=== PATIENT | female | born 1985 | race Caucasian/White ===

== ENCOUNTER 2016-09-27 22:02 | Inpatient (IN) | payer SELFPAY ==
[~2016-09-27] VITALS: Ht 162.6 cm; Wt 71.6 kg
[2016-09-27 00:21] VITALS: O2SAT 98
[~2016-09-27 22:02] MED LIST: CIPR-9 PO
[2016-09-27 22:09] VITALS: BP 112/67; PULSE 107; RESP 36; TEMP 98.3; O2SAT 91
[2016-09-27] MEDS ORDERED: LORazepam 2 MG/ML VIAL ONE (22:13)
[2016-09-27] MEDS ORDERED: LORazepam 2 MG/ML VIAL IV PUSH ONE ×2 (22:15→22:45)
[2016-09-27] MEDS ORDERED: SODIUM CHLOR 0.9% 1000 ML INJ 1,000 ML IV SCH (22:15)
[2016-09-27 22:21] VITALS: O2SAT 91
--- NOTE | 2016-09-27 22:29 | PD ---
HPI Chief Complaint: Altered Mental Status Time Seen by Provider: 22:13 Travel History International Travel<30 days: No Contact w/Intl Traveler<30days: No Traveled to known affect area: No History of Present Illness HPI 31-year-old female was brought in by EMS for altered mental status. Family member reportedly called EMS this evening because patient was combative at home. Patient was given Ativan 2 mg IV. Patient became more lethargic on the way to the ED. Patient was given Narcan IV by EMS. Patient became combative subsequently. Patient has history of methamphetamine abuse. Patient's unable to give any more information today. PFSH Past Medical History Asthma: Yes Anxiety: Yes Depression: Yes Cancer: Yes (CERVICAL CA) Cardiovascular Problems: Yes Diminished Hearing: No Hepatitis: Yes ( C) Immunizations Current: No Menopausal: No : 4 Para: 3 Miscarriage: 1 : 0 Tubal Ligation: Yes Past Surgical History Cardiac Surgery: Yes (OPEN HEART FOR ENDOCARDITIS X 2) Section: Yes (X3) Valve Replacement: Yes (2015) Social History Alcohol Use: No Tobacco Use: Yes (08/14 ppd) Substance Use: Yes (DILAUDID, METH, MARIJUANA) Allergies-Medications (Allergen,Severity, Reaction): Coded Allergies: Codeine (Verified Allergy, Severe, 09/27/16) patient denies Iodine (Verified Allergy, Severe, hives, 09/27/16) Penicillin (Verified Allergy, Severe, hives, 09/27/16) "throat swollen" Reported Meds & Prescriptions Reported Meds & Active Scripts Active No Active Prescriptions or Reported Medications Review of Systems ROS Limitations: Altered Mental Status General / Constitutional: No: Fever Eyes: No: Visual changes HENT: No: Headaches Cardiovascular: No: Chest Pain or Discomfort Respiratory: No: Shortness of Breath Gastrointestinal: No: Abdominal Pain Genitourinary: No: Dysuria Musculoskeletal: No: Pain Skin: No Rash Neurologic: No: Weakness Psychiatric: No: Depression Endocrine: No: Polydipsia Hematologic/Lymphatic: No: Easy Bruising Physical Exam Narrative GENERAL: Well-nourished, well-developed patient. SKIN: Focused skin assessment warm/dry. HEAD: Normocephalic. EYES: No scleral icterus. No injection or drainage. Pupils 3 mm equal reactive. NECK: Supple, trachea midline. No JVD or lymphadenopathy. CARDIOVASCULAR: Regular rate and rhythm without murmurs, gallops, or rubs. RESPIRATORY: Breath sounds equal bilaterally. No accessory muscle use. GASTROINTESTINAL: Abdomen soft, non-tender, nondistended. MUSCULOSKELETAL: No cyanosis, or edema. BACK: Nontender without obvious deformity. No CVA tenderness. Neurologic exam: Patient is combative. Patient moves all extremity well. No obvious focal neurological deficit. Data Data Last Documented VS Vital Signs Date Time Temp Pulse Resp B/P Pulse Ox O2 Delivery O2 Flow Rate FiO2 09/27/16 23:36 102 32 101/55 98 Nasal Cannula 09/27/16 23:12 3 09/27/16 22:09 98.3 Orders Lorazepam Inj (Ativan Inj) (09/27/16 22:13) Lorazepam Inj (Ativan Inj) (09/27/16 22:15) Electrocardiogram (09/27/16 22:15) Complete Blood Count With Diff (09/27/16 22:15) Comprehensive Metabolic Panel (09/27/16 22:15) Creatine Kinase (Cpk) (09/27/16 22:15) Troponin I (09/27/16 22:15) Prothrombin Time / Inr (Pt) (09/27/16 22:15) Act Partial Throm Time (Ptt) (09/27/16 22:15) Urinalysis - C+S If Indicated (09/27/16 22:15) Thyroid Stimulating Hormone (09/27/16 22:15) Chest, Single Ap (09/27/16 22:15) Iv Access Insert/Monitor (09/27/16 22:15) Ecg Monitoring (09/27/16 22:15) Oximetry (09/27/16 22:15) Drug Screen, Random Urine (09/27/16 22:15) Alcohol (Ethanol) (09/27/16 22:15) Salicylates (Aspirin) (09/27/16 22:15) Tylenol (Acetaminophen) (09/27/16 22:15) Sodium Chlor 0.9% 1000 Ml Inj (Ns 1000 M (09/27/16 22:15) Lactic Acid (09/27/16 22:23) Arterial Blood Gas (Abg) (09/27/16 22:23) Blood Culture (09/27/16 22:23) Urinary Catheter Insert/Apply (09/27/16 22:23) Sodium Chlor 0.9% 1000 Ml Inj (Ns 1000 M (09/27/16 22:30) Lorazepam Inj (Ativan Inj) (09/27/16 22:45) Sodium Bicarbonate 8.4% Inj (Sodium Bica (09/27/16 23:00) Sodium Bicarbonate 8.4% Inj (Sodium Bica (09/27/16 22:51) Sodium Chlor 0.9% 1000 Ml Inj (Ns 1000 M (09/27/16 23:00) Vancomycin Inj (Vancomycin Inj) (09/27/16 23:00) Levofloxacin 750 Mg Premix Inj (Levaquin (09/27/16 23:00) Urine Culture (09/27/16 22:25) Type And Screen (09/27/16 23:26) Platelet Pheresis (09/27/16 23:26) Blood Product Administration .UPON TRANSFUSION (09/27/16 23:26) Sodium Chlor 0.9% 250 Ml Inj (Ns 250 Ml (09/27/16 23:30) Aztreonam Inj (Azactam Inj) (09/27/16 23:45) Ct Brain W/O Iv Contrast(Rout) (09/27/16 23:57) Ct Abd/Pel W/O Iv Contrast (09/27/16 23:57) Admit Order (Ed Use Only) (09/28/16 00:04) Labs Laboratory Tests Test 09/27/16 09/27/16 09/27/16 09/27/16 22:25 22:30 22:35 22:39 Urine Opiates Screen POS Urine Barbiturates Screen NEG Urine Amphetamines Screen POS Urine Benzodiazepines Screen NEG Urine Cocaine Screen NEG Urine Cannabinoids Screen NEG Urine Color DARK-BROWN Urine Turbidity CLOUDY Urine pH 5.0 Urine Specific [place] 1.024 Urine Protein 100 mg/dL Urine Glucose (UA) NEG mg/dL Urine Ketones NEG mg/dL Urine Occult Blood NEG Urine Nitrite NEG Urine Bilirubin NEG Urine Urobilinogen 8.0 MG/DL Urine Leukocyte Esterase SMALL Urine RBC 3 /hpf Urine WBC 10 /hpf Urine Squamous Epithelial 1 /hpf Cells Urine Amorphous Sediment RARE Urine Bacteria RARE /hpf Urine Hyaline Casts 32 /lpf Urine Mucus FEW /lpf Microscopic Urinalysis Comment CULTURE INDICATED Sodium Level 128 MEQ/L Potassium Level 4.0 MEQ/L Chloride Level 95 MEQ/L Carbon Dioxide Level 14.0 MEQ/L Anion Gap 19 MEQ/L Blood Urea Nitrogen 73 MG/DL Creatinine 3.95 MG/DL Estimat Glomerular Filtration 13 ML/MIN Rate Random Glucose 129 MG/DL Calcium Level 7.9 MG/DL Total Bilirubin 3.0 MG/DL Aspartate Amino Transf 50 U/L (AST/SGOT) Alanine Aminotransferase 22 U/L (ALT/SGPT) Alkaline Phosphatase 266 U/L Total Creatine Kinase 99 U/L Troponin I LESS THAN 0.02 NG/ML Total Protein 5.5 GM/DL Albumin 1.9 GM/DL Thyroid Stimulating Hormone 2.470 uIU/ML 3rd Gen Salicylates Level 2.9 MG/DL Acetaminophen Level 5.1 MCG/ML Ethyl Alcohol Level LESS THAN 3 MG/DL White Blood Count 12.7 TH/MM3 Red Blood Count 4.25 MIL/MM3 Hemoglobin 12.1 GM/DL Hematocrit 36.5 % Mean Corpuscular Volume 85.8 FL Mean Corpuscular Hemoglobin 28.6 PG Mean Corpuscular Hemoglobin 33.3 % Concent Red Cell Distribution Width 14.8 % Platelet Count 11 TH/MM3 Mean Platelet Volume 12.8 FL Neutrophils (%) (Auto) 80.0 % Lymphocytes (%) (Auto) 11.5 % Monocytes (%) (Auto) 5.9 % Eosinophils (%) (Auto) 2.4 % Basophils (%) (Auto) 0.2 % Neutrophils # (Auto) 10.1 TH/MM3 Lymphocytes # (Auto) 1.5 TH/MM3 Monocytes # (Auto) 0.7 TH/MM3 Eosinophils # (Auto) 0.3 TH/MM3 Basophils # (Auto) 0.0 TH/MM3 CBC Comment AUTO DIFF Differential Total Cells 100 Counted Neutrophils % (Manual) 60 % Band Neutrophils % 28 % Lymphocytes % 6 % Monocytes % 6 % Neutrophils # (Manual) 11.2 TH/MM3 Differential Comment FINAL DIFF MANUAL Toxic Granulation 1+ Toxic Vacuolation PRESENT Platelet Estimate RARE Platelet Morphology Comment NORMAL Acanthocytes OCC Prothrombin Time 14.5 SEC Prothromb Time International 1.3 RATIO Ratio Activated Partial 40.1 SEC Thromboplast Time Blood Gas Puncture Site RT FEMORAL Blood Gas Patient Temperature 98.6 Blood Gas HCO3 11 mmol/L Blood Gas Base Excess -13.9 mmol/L Blood Gas Oxygen Saturation 93 % Arterial Blood pH 7.36 Arterial Blood Partial 20 mmHg Pressure CO2 Arterial Blood Partial 75 mmHG Pressure O2 Arterial Blood Oxygen Content 15.1 Vol % Arterial Blood 1.4 % Carboxyhemoglobin Arterial Blood Methemoglobin 0.2 % Blood Gas Hemoglobin 11.5 G/DL Oxygen Delivery Device NASAL CANNULA Blood Gas Liter Flow 2 L/M Test 09/27/16 09/27/16 22:40 23:00 Lactic Acid Level 6.6 mmol/L Blood Type A NEGATIVE Antibody Screen NEGATIVE Blood Bank Comment MDM Medical Decision Making Medical Screen Exam Complete: Yes Emergency Medical Condition: Yes Interpretation(s) Last Impressions Chest X-Ray 09/27/16 Signed Impressions: Service Date/Time: Tuesday, September 27, 2016 22:32 - CONCLUSION: No acute cardiopulmonary disease demonstrated. Biju Richardson MD 23:51 PM. CBC WBC 12.7. Hemoglobin 12.1 hematocrit 36.5. Platelet 11. Sodium 128. Chloride 95. Bicarbonate 14. Anion gap 19. BUN 73. Creatinine 3.95. GFR 13. Glucose 129. Lactic acid 6.6. Calcium 7.9. Total bili 3.0. AST 50. Alkaline phosphatase 266. Cardiac enzymes are normal. INR 1.3. Urine drug screen positive opiates and amphetamine. Acetaminophen and salicylate normal. Alcohol negative. UA positive with WBC and bacteria. Differential Diagnosis Differential diagnosis including drug-induced mood disorder, TIA, CVA, electrolyte imbalance, dehydration, sepsis, AL. Narrative Course 31-year-old female with altered mental status. Sepsis protocol started. Normal saline solution 2 L IV bolus. Levaquin 750 minute gram IV. Vancomycin 1 g IV. Azactam 1 g IV. Sodium bicarbonate 2 A IV. Patient started to have respiratory distress. Patient was intubated. Patient's in DIC. Procedures Procedure Narrative CENTRAL VENOUS LINE: The site was prepped with Betadine and sterilely draped. It was infiltrated with 1% lidocaine plain. The deep vein was cannulated using normal Seldinger technique. A triple lumen central line was placed in the right femoral vein site and secured with simple interrupted suture. The site was sterilely dressed. The patient tolerated the procedure well. After the risks and benefits were discussed the following procedure was performed: INTUBATION: The patient was put in optimal position for the procedure. Rapid sequence intubation was initiated by me using 20 milligrams of etomidate IV and 50 milligrams of rocuronium IV. The patient was intubated with a 7.5 cuffed endotracheal tube. Tube placement was confirmed by visualization of the tube and balloon passing through the cords, capnometry and subsequent chest x-ray. Breath sounds were equal and well aerated bilaterally postintubation. No breath sounds over stomach. Patient tolerated procedure well. Diagnosis Primary Impression: Sepsis Qualified Code: A41.9 - Sepsis, due to unspecified organism Additional Impressions: Thrombocytopenia Coagulopathy Acute renal failure Qualified Code: N17.9 - Acute renal failure, unspecified acute renal failure type Admitting Information Admitting Physician Requests: Admit Scripts No Active Prescriptions or Reported Meds Kavon Sánchez MD Sep 27, 2016 22:29
[2016-09-27] MEDS ORDERED: SODIUM CHLOR 0.9% 1000 ML INJ 1,000 ML IV ONE ×2 (22:30→23:00)
[2016-09-27 22:38] VITALS: BP 98/57; PULSE 103; RESP 28; O2SAT 96
--- NOTE | 2016-09-27 22:40 | RADRPT ---
EXAM DATE/TIME: 09/27/2016 22:32 [facility] COMPARISON: No previous studies available for comparison. INDICATIONS : Short of breath. Possible overdose. MEDICAL HISTORY : None. SURGICAL HISTORY : Heart valve replacement x2. ENCOUNTER: Initial ACUITY: 1 day PAIN SCORE: Non-responsive. LOCATION: Bilateral chest FINDINGS: No infiltrate, effusion or pneumothorax demonstrated. Heart size stable, within normal limits. Patient has had previous median sternotomy and tricuspid yoni ve replacement. CONCLUSION: No acute cardiopulmonary disease demonstrated. Biju Richardson MD on September 27, 2016 at 22:37 Board Certified Radiologist. This report was verified electronically.
[2016-09-27 22:49] LABS: BLOOD GAS BASE EXCESS -13.9 mmol/L (-2-2); BLOOD GAS CARBOXYHEMOGLOBIN 1.4 % (0-4); BLOOD GAS HCO3 11 mmol/L (22-26); BLOOD GAS METHEMOGLOBIN 0.2 % (0-2); BLOOD GAS O2 HGB SATURATION 93 % (90-100); BLOOD GAS OXYGEN CONTENT 15.1 Vol % (12.0-20.0); BLOOD GAS PCO2 20 mmHg (38-42); BLOOD GAS PO2 75 mmHG (61-120); BLOOD GAS TOTAL HGB 11.5 G/DL (12.0-16.0); TEMP CORR TO 98.6
[2016-09-27 22:50] LABS: CRITICAL VALUE YES; DRAW SITE RT FEMORAL; LITER FLOW 2 L/M; NUMBER OF ARTERIAL PUNCTURES 1; OXYGEN DEVICE NASAL CANNULA; STAT YES
[2016-09-27] MEDS ORDERED: SODIUM BICARBONATE 8.4% INJ 50 MEQ/50 ML SYR ONE (22:51)
[2016-09-27 22:53] LABS: AUTOMATED NEUTROPHIL # 10.1 TH/MM3 (1.8-7.7); BASOPHIL % 0.2 % (0.0-2.0); EOSINOPHIL # 0.3 TH/MM3 (0-0.4); EOSINOPHIL % 2.4 % (0.0-4.0); HEMATOCRIT 36.5 % (35.0-46.0); LYMPH % 11.5 % (9.0-44.0); LYMPHOCYTE # 1.5 TH/MM3 (1.0-4.8); MEAN CELL VOLUME 85.8 FL (80.0-100.0); MEAN CORPUSCULAR HEMOGLOBIN 28.6 PG (27.0-34.0); MEAN CORPUSCULAR HGB CONC 33.3 % (32.0-36.0); MONO % 5.9 % (0.0-8.0); RED BLOOD COUNT 4.25 MIL/MM3 (4.00-5.30); RED CELL DISTRIBUTION WIDTH 14.8 % (11.6-17.2); WHITE BLOOD COUNT 12.7 TH/MM3 (4.0-11.0)
[2016-09-27 22:55] LABS: AMPHETAMINE, URINE POS (NEG); BACTERIA, URINE RARE /hpf; BARBITURATES, URINE NEG (NEG); BLOOD, URINE NEG (NEG); COCAINE, URINE NEG (NEG); GLUCOSE,URINE NEG (NEG); HYALINE CAST, URINE 32 /lpf (RARE); KETONE, URINE NEG (NEG); MUCUS URINE FEW /lpf (OCC); NITRITE,URINE NEG (NEG); SQUAMOUS EPITHELIAL CELL URINE 1 /hpf (0-5); URINE COLOR DARK-BROWN (YELLW/STRAW)
[2016-09-27 22:56] LABS: COMMENT (UR) CULTURE INDICATED; CULTURE IF INDICATED CULTURE INDICATED
[2016-09-27 22:58] LABS: HEMO FLAGS AUTO DIFF
[2016-09-27] MEDS ORDERED: SODIUM BICARBONATE 8.4% INJ 50 MEQ/50 ML SYR IV PUSH ONE (23:00)
[2016-09-27] MEDS ORDERED: LEVOFLOXACIN 750 MG PREMIX INJ 150 ML IV ONE (23:00)
[2016-09-27] MEDS ORDERED: VANCOMYCIN INJ 1,000 MG in SODIUM CHLOR 0.9% 250 ML INJ 250 ML IV ONE (23:00)
[2016-09-27 23:01] LABS: PLATELET COUNT 11 TH/MM3 (150-450)
[2016-09-27 23:11] LABS: ANION GAP 19 MEQ/L (5-15); AST (GOT) 50 U/L (15-37); BLOOD UREA NITROGEN 73 MG/DL (7-18); CHLORIDE 95 MEQ/L (98-107); GLOMERULAR FILTRATION RATE 13 ML/MIN (>89); SODIUM (NA) 128 MEQ/L (136-145)
[2016-09-27 23:12] VITALS: BP 95/61; PULSE 103; RESP 34; O2SAT 100
[2016-09-27 23:18] LABS: APTT (PATIENT) 40.1 SEC (24.3-30.1); INTERNATIONAL NORMALIZED RATIO 1.3 RATIO; PROTHROMBIN TIME - PATIENT 14.5 SEC (9.8-11.6)
[2016-09-27] MEDS ORDERED: SODIUM CHLOR 0.9% 250 ML INJ 250 ML IV ONE (23:30)
[2016-09-27 23:32] LABS: ACETAMINOPHEN 5.1 MCG/ML (10.0-30.0); ALKALINE PHOSPHATASE 266 U/L (45-117); ALT (GPT) 22 U/L (10-53)
[2016-09-27 23:35] LABS: CREATINE KINASE 99 U/L (26-192)
[2016-09-27 23:36] VITALS: BP 101/55; PULSE 102; RESP 32; O2SAT 98
[2016-09-27] MEDS ORDERED: AZTREONAM INJ 1,000 MG in SODIUM CHLORIDE 0.9% INJ 100 ML IV ONE (23:45)
[2016-09-28] VITALS (34 sets, daily range): BP systolic 89–149; BP diastolic 51–97; PULSE 102–140; RESP 14–32; TEMP 98.2–103; O2SAT 90–100
[2016-09-28] MEDS ORDERED: ETOMIDATE 20 MG/10 ML VIAL ONE (00:27)
[2016-09-28] MEDS ORDERED: fentaNYL DRIP 250 ML IV SCH ×2 (00:30→02:00)
[2016-09-28] MEDS ORDERED: MIDAZOLAM 100 MG/ML INJ 100 ML IV SCH ×2 (00:30→02:00)
[2016-09-28] MEDS ORDERED: ETOMIDATE 20 MG/10 ML VIAL IV PUSH ONE (00:30)
[2016-09-28] MEDS ORDERED: ROCURONIUM INJ 50 MG/5 ML VIAL IV ONE (00:30)
[2016-09-28] MEDS ORDERED: NOREPINEPHRINE 4 MG/4 ML AMP ONE ×2 (00:32→00:37)
[2016-09-28] MEDS ORDERED: fentaNYL DRIP 250 ML ONE (00:41)
[2016-09-28] MEDS ORDERED: TERBUTALINE INJ 1 MG/ML AMP SQ PRN ×4 (00:45→10:45)
[2016-09-28] MEDS ORDERED: NOREPINEPHRINE-DEXTROSE DRIP 250 ML IV SCH ×3 (00:45→01:45)
[2016-09-28 01:14] LABS: BANDS 28 % (0-6); NEUTROPHIL # MANUAL DIFF 11.2 TH/MM3 (1.8-7.7); PLATELET ESTIMATE SMEAR RARE (NORMAL); PLATELET MORPHOLOGY NORMAL (NORMAL); POLYS (SEG NEUTROPHILS) 60 % (16-70); SCAN/DIFF FINAL DIFF MANUAL; TOXIC GRANULATION 1+ (NORMAL); TOXIC VACUOLATION PRESENT (NONE SEEN); WBC DIFF SAMPLE 100
[2016-09-28 01:15] LABS: ACANTHOCYTES OCC (NORMAL)
[2016-09-28 01:39] LABS: BLOOD GAS BASE EXCESS -14.7 mmol/L (-2-2); BLOOD GAS CARBOXYHEMOGLOBIN 0.4 % (0-4); BLOOD GAS HCO3 13 mmol/L (22-26); BLOOD GAS METHEMOGLOBIN 0.5 % (0-2); BLOOD GAS O2 HGB SATURATION 98 % (90-100); BLOOD GAS OXYGEN CONTENT 17.5 Vol % (12.0-20.0); BLOOD GAS PCO2 39 mmHg (38-42); BLOOD GAS PO2 359 mmHG (61-120); TEMP CORR TO 98.6
[2016-09-28 01:40] LABS: CRITICAL VALUE YES; DRAW SITE RT BRACHIAL; FIO2 100 %; OXYGEN DEVICE VENTILATOR; VENT SETTINGS AC/14/400/PEEP5
[2016-09-28 01:41] LABS: NUMBER OF ARTERIAL PUNCTURES 2; STAT YES
--- NOTE | 2016-09-28 01:43 | RADRPT ---
EXAM DATE/TIME: 09/28/2016 01:18 [facility] COMPARISON: No previous studies available for comparison. INDICATIONS : Post intubation. MEDICAL HISTORY : None. SURGICAL HISTORY : Heart valve replacement x2. ENCOUNTER: Subsequent ACUITY: 1 day PAIN SCORE: Non-responsive. LOCATION: Bilateral chest FINDINGS: A single view of the chest demonstrates the endotracheal tube, nasogastric tube are both in good posi tion. Lungs are grossly clear. There are sternal wires and prosthetic valve unchanged. The cardiomed iastinal contours are unremarkable. Osseous structures are intact. CONCLUSION: Endotracheal tube and nasogastric are in good position Erick Wright MD on September 28, 2016 at 1:40 Board Certified Radiologist. This report was verified electronically.
[2016-09-28] MEDS ORDERED: Vancomycin Consult Pharmacy 1 EA OTHER SCH (01:45)
[2016-09-28] MEDS ORDERED: SODIUM CHLORIDE 0.9% FLUSH 10 ML FLUSH IV FLUSH PRN (01:45)
[2016-09-28] MEDS ORDERED: SODIUM CHLOR 0.9% 1000 ML INJ 1,000 ML IV SCH (01:45)
[2016-09-28] MEDS ORDERED: CHLORHEXIDINE GLUCONATE 2 % 1 PACK (2 CLOTHS) TOP PRN ×2 (01:45→02:00)
[2016-09-28] MEDS ORDERED: RESP: ALBUTEROL 2.5 MG/IPRATROPIUM 0.5 MG NEB (PRN) INH (01:45)
[2016-09-28] MEDS ORDERED: MISCELLANEOUS NURSING INFORMATION XX SCH ×2 (01:45→02:00)
[2016-09-28] MEDS ORDERED: SODIUM BICARBONATE 8.4% INJ 50 MEQ/50 ML SYR ONE (01:59)
[2016-09-28] MEDS ORDERED: MORPHINE SULFATE 4 MG/ML INJ IV PRN (02:00)
[2016-09-28] MEDS ORDERED: MIDAZOLAM HCL 2 MG/2 ML VIAL IV PRN (02:00)
[2016-09-28] MEDS ORDERED: SODIUM CHLORIDE 0.9% FLUSH 10 ML FLUSH IVF PRN (02:00)
[2016-09-28] MEDS ORDERED: VANCOMYCIN INJ 1,000 MG in SODIUM CHLOR 0.9% 250 ML INJ 250 ML IV ONE (02:00)
[2016-09-28] MEDS ORDERED: SODIUM BICARBONATE 8.4% INJ 50 MEQ/50 ML SYR IV PUSH ONE (02:00)
[2016-09-28] MEDS ORDERED: SODIUM BICARBONATE 8.4% INJ 150 MEQ in DEXTROSE 5% IN WATE 1000ML INJ 1,000 ML IV SCH ×2 (02:00)
[2016-09-28] MEDS: metroNIDAZOLE 500 MG INJ 100 ML IV SCH ×3 (02:09→17:01)
--- NOTE | 2016-09-28 02:39 | RADRPT ---
EXAM DATE/TIME: 09/28/2016 02:26 [facility] COMPARISON: No previous studies available for comparison. INDICATIONS : Altered mental status. RADIATION DOSE: 41.10 CTDIvol (mGy) MEDICAL HISTORY : Open heart surgery for endocarditis. Valve replacement. Substance abuse. SURGICAL HISTORY : Tubal ligation. section. ENCOUNTER: Initial ACUITY: 1 day PAIN SCALE: Non-responsive LOCATION: cranial TECHNIQUE: Multiple contiguous axial images were obtained of the head. Using automated exposure control and adj ustment of the mA and/or kV according to patient size, radiation dose was kept as low as reasonably a chievable to obtain optimal diagnostic quality images. FINDINGS: CEREBRUM: The ventricles are normal for age. No evidence of midline shift, mass lesion, hemorrhage or acute in farction. No extra-axial fluid collections are seen. POSTERIOR FOSSA: The cerebellum and brainstem are intact. The 4th ventricle is midline. The cerebellopontine angle i s unremarkable. EXTRACRANIAL: The visualized portion of the orbits is intact. SKULL: The calvaria is intact. No evidence of skull fracture. CONCLUSION: Normal examination. Erick Wright MD on September 28, 2016 at 2:38 Board Certified Radiologist. This report was verified electronically.
--- NOTE | 2016-09-28 02:42 | RADRPT ---
EXAM DATE/TIME: 09/28/2016 02:30 [facility] COMPARISON: No previous studies available for comparison. INDICATIONS : Lethargy, possible overdose. ORAL CONTRAST: No oral contrast ingested. RADIATION DOSE: 9.93 CTDIvol (mGy) MEDICAL HISTORY : Open heart surgery for endocarditis. Valve replacement. Substance abuse. SURGICAL HISTORY : Tubal ligation. section. ENCOUNTER: Initial ACUITY: 1 day PAIN SCALE: Non-responsive LOCATION: Bilateral abdomen TECHNIQUE: Volumetric scanning of the abdomen and pelvis was performed. Using automated exposure control and ad justment of the mA and/or kV according to patient size, radiation dose was kept as low as reasonably achievable to obtain optimal diagnostic quality images. FINDINGS: Study was performed without IV contrast. LOWER LUNGS: Bilateral lower lobes of consolidation. LIVER: Homogeneous density without lesion. There is no dilation of the biliary tree. No calcified gallston es. SPLEEN: Normal size without lesion. PANCREAS: Within normal limits. KIDNEYS: Normal in size and shape. There is no mass, stone, or hydronephrosis. ADRENAL GLANDS: Within normal limits. VASCULAR: There is no aortic aneurysm. BOWEL/MESENTERY: NG tube within the stomach . The stomach, small bowel, and colon demonstrate no acute abnormality. T here is no free intraperitoneal air or fluid. ABDOMINAL WALL: Within normal limits. RETROPERITONEUM: There is no lymphadenopathy. Right-sided femoral venous line BLADDER: No wall thickening or mass. REPRODUCTIVE: Within normal limits. Some free fluid in the pelvis INGUINAL: There is no lymphadenopathy or hernia. MUSCULOSKELETAL: Within normal limits for patient age. CONCLUSION: Small areas of lower lobe consolidation the lungs possible atelectasis. Solid organs of the abdomen a re unremarkable without IV contrast. Some free fluid in the pelvis. Erick Wright MD on September 28, 2016 at 2:38 Board Certified Radiologist. This report was verified electronically.
[2016-09-28] MEDS: ACETAMINOPHEN 325 MG TAB PO PRN ×3 (03:19→17:47)
[2016-09-28] MEDS: HYDROCORTISONE SOD SUCCINATE 100 MG VIAL IV SCH ×4 (03:39→21:29)
[2016-09-28] MEDS ORDERED: CHLORHEXIDINE GLUCONATE 2 % 1 PACK (2 CLOTHS) TOP SCH (04:00)
[2016-09-28] MEDS: RESP: ALBUTEROL 2.5 MG/IPRATROPIUM 0.5 MG NEB (SCH) INH ×6 (04:00→23:06)
[2016-09-28] MEDS: CHLORHEXIDINE GLUCONATE 2 % 1 PACK (2 CLOTHS) TOP SCH (04:00)
[2016-09-28 04:07] LABS: LACTIC ACID GHOST NOT REPORTABLE
--- NOTE | 2016-09-28 04:28 | HHI.HP ---
HPI Service Critical Care Medicine Primary Care Physician No Primary Care Physician Admission Diagnosis sepsis. Thrombocytopenia. Coagulopathy. Acute renal failure. Diagnosis: Travel History International Travel<30 Days: No Contact w/Intl Traveler <30 Da: No Traveled to Known Affected Are: No History of Present Illness 31-year-old female with history of methamphetamine abuse was brought in by EMS for altered mental status. Family member reportedly called EMS because patient was combative at home. Patient was given Ativan 2 mg IV. Patient became more lethargic on the way to the ED. She was given Narcan IV by EMS and was extremely combative subsequently. She was intubated by ER attending for an airway protection. Review of Systems ROS Unable to obtain patient is sedated and intubated Past Family Social History Allergies: Coded Allergies: Codeine (Verified Allergy, Severe, 09/27/16) patient denies Iodine (Verified Allergy, Severe, hives, 09/27/16) Penicillin (Verified Allergy, Severe, hives, 09/27/16) "throat swollen" Past Medical History Asthma Depression Polysubstance abuse - methamphetamine Past Surgical History Unable to obtain Reported Medications Reported Meds & Active Scripts Active No Active Prescriptions or Reported Medications Active Ordered Medications Current Medications Medications (Trade) Dose Ordered Sig/Daniel Route PRN Reason Start Time Stop Time Status Last Admin Dose Admin Sodium Chloride 250 ml @ 15 mls/hr ONCE ONCE IV 09/27/16 23:30 09/28/16 16:09 09/28/16 02:03 Sodium Chloride (NS 1000 ml Inj) 1,000 ml @ 75 mls/hr [id number] IV 09/28/16 01:45 09/28/16 01:59 Sodium Chloride (NS Flush) 2 ml UNSCH PRN IV FLUSH FLUSH AFTER USING IV ACCESS 09/28/16 01:45 Sodium Chloride (NS Flush) 2 ml BID IV FLUSH 09/28/16 09:00 Hydrocortisone Sodium Succinate 50 mg 50 mg Q6H IV 09/28/16 02:00 09/28/16 03:39 Pharmacy Profile Note 0 ml @ 0 mls/hr UNSCH OTHER 09/28/16 01:45 Aztreonam 1000 mg/ Sodium Chloride 100 ml @ 200 mls/hr Q8H IV 09/28/16 08:00 Metronidazole 100 ml @ 100 mls/hr Q8H IV 09/28/16 02:00 09/28/16 02:09 Norepinephrine Bitartrate (Levophed-Dextrose Drip) 250 ml @ 0 mls/hr TITRATE IV 09/28/16 01:45 Terbutaline Sulfate 1 mg 1 mg UNSCH PRN SQ For Extravasation 09/28/16 01:45 Vasopressin 40 units/Dextrose 100 ml @ 1.5 mls/hr Q24H IV 09/28/16 01:45 Sodium Bicarbonate/ Dextrose (Sodium Bicarbonate 8.4% Inj/D5W 1000 ml Inj) 1,150 ml @ 100 mls/hr [id number] IV 09/28/16 02:00 09/28/16 03:19 Morphine Sulfate (Morphine Inj) 2 mg Q2H PRN IV PAIN SCALE 6 TO 10 09/28/16 02:00 Famotidine (Pepcid Inj) 20 mg Q12HR IV PUSH 09/28/16 09:00 Midazolam HCl (Versed Inj) 2 mg Q1H PRN IV SEDATION 09/28/16 02:00 Senna/Docusate Sodium (Anu-Colace) 2 tab BID PO 09/28/16 09:00 Miscellaneous Information 1 [id number] XX 09/28/16 02:00 Chlorhexidine Gluconate (Chlorhexidine 2% Cloth) 3 pack Taper DAILY@04 TOP 09/28/16 04:00 09/24/17 03:59 09/28/16 04:00 Chlorhexidine Gluconate 3 pack 3 pack UNSCH PRN TOP HYGIENIC CARE 09/28/16 02:00 Midazolam HCl 100 ml @ 0 mls/hr TITRATE IV 09/28/16 02:00 Fentanyl Citrate (fentaNYL DRIP) 250 ml @ 0 mls/hr TITRATE IV 09/28/16 02:00 Acetaminophen (Tylenol) 650 mg Q4H PRN PO Temp>101F, Headache 09/28/16 02:00 09/28/16 03:19 Family History Noncontributory Social History Positive for smoking Positive for methamphetamine Unknown alcohol use status Physical Exam Vital Signs Vital Signs Date Time Temp Pulse Resp B/P Pulse Ox O2 Delivery O2 Flow Rate FiO2 09/28/16 03:00 101.1 132 30 110/57 100 09/28/16 02:50 50 09/28/16 02:45 100 50 09/28/16 02:40 100 09/28/16 02:29 130 32 131/78 93 Ventilator 50 09/28/16 02:25 98 100 09/28/16 01:48 146/97 09/28/16 01:45 50 09/28/16 01:45 98 50 09/28/16 01:39 119 14 137/87 100 Ventilator 100 09/28/16 01:31 113 14 147/97 100 Ventilator 09/28/16 01:13 112 14 149/96 96 Ventilator 100 09/28/16 01:07 111 14 147/88 90 Ventilator 100 09/28/16 01:06 100 09/28/16 00:51 107 14 122/79 97 Ventilator 50 09/28/16 00:40 98 100 09/28/16 00:35 50 09/28/16 00:21 98.2 102 28 89/57 98 Nasal Cannula 3 09/27/16 23:36 102 32 101/55 98 Nasal Cannula 09/27/16 23:12 103 34 95/61 100 Nasal Cannula 3 09/27/16 23:00 101 28 92 Nasal Cannula 3 09/27/16 22:38 103 28 98/57 96 Nasal Cannula 3 09/27/16 22:21 91 Nasal Cannula 2 09/27/16 22:09 98.3 107 36 112/67 91 Physical Exam GENERAL: Elderly-looking young patient multiple ecchymosis and mottled skin. Sedated and intubated SKIN: Warm and dry. HEAD: Normocephalic. EYES: No scleral icterus. No injection or drainage. NECK: Supple, trachea midline. No JVD or lymphadenopathy. CARDIOVASCULAR: Regular rate and rhythm without murmurs, gallops, or rubs. RESPIRATORY: Breath sounds equal bilaterally. No accessory muscle use. GASTROINTESTINAL: Abdomen soft, non-tender, nondistended. MUSCULOSKELETAL: No cyanosis, or edema. BACK: Nontender without obvious deformity. No CVA tenderness. EXTREMITIES: No clubbing cyanosis or edema Laboratory Laboratory Tests Test 09/27/16 09/27/16 09/27/16 09/27/16 22:25 22:30 22:35 22:39 Urine Opiates Screen POS Urine Barbiturates Screen NEG Urine Amphetamines Screen POS Urine Benzodiazepines Screen NEG Urine Cocaine Screen NEG Urine Cannabinoids Screen NEG Urine Color DARK-BROWN Urine Turbidity CLOUDY Urine pH 5.0 Urine Specific [place] 1.024 Urine Protein 100 Urine Glucose (UA) NEG Urine Ketones NEG Urine Occult Blood NEG Urine Nitrite NEG Urine Bilirubin NEG Urine Urobilinogen 8.0 Urine Leukocyte Esterase SMALL Urine RBC 3 Urine WBC 10 Urine Squamous Epithelial 1 Cells Urine Amorphous Sediment RARE Urine Bacteria RARE Urine Hyaline Casts 32 Urine Mucus FEW Microscopic Urinalysis Comment CULTURE INDICATED Sodium Level 128 Potassium Level 4.0 Chloride Level 95 Carbon Dioxide Level 14.0 Anion Gap 19 Blood Urea Nitrogen 73 Creatinine 3.95 Estimat Glomerular Filtration 13 Rate Random Glucose 129 Calcium Level 7.9 Total Bilirubin 3.0 Aspartate Amino Transf 50 (AST/SGOT) Alanine Aminotransferase 22 (ALT/SGPT) Alkaline Phosphatase 266 Total Creatine Kinase 99 Troponin I LESS THAN 0.02 Total Protein 5.5 Albumin 1.9 Thyroid Stimulating Hormone 2.470 3rd Gen Salicylates Level 2.9 Acetaminophen Level 5.1 Ethyl Alcohol Level LESS THAN 3 White Blood Count 12.7 Red Blood Count 4.25 Hemoglobin 12.1 Hematocrit 36.5 Mean Corpuscular Volume 85.8 Mean Corpuscular Hemoglobin 28.6 Mean Corpuscular Hemoglobin 33.3 Concent Red Cell Distribution Width 14.8 Platelet Count 11 Mean Platelet Volume 12.8 Neutrophils (%) (Auto) 80.0 Lymphocytes (%) (Auto) 11.5 Monocytes (%) (Auto) 5.9 Eosinophils (%) (Auto) 2.4 Basophils (%) (Auto) 0.2 Neutrophils # (Auto) 10.1 Lymphocytes # (Auto) 1.5 Monocytes # (Auto) 0.7 Eosinophils # (Auto) 0.3 Basophils # (Auto) 0.0 CBC Comment AUTO DIFF Differential Total Cells 100 Counted Neutrophils % (Manual) 60 Band Neutrophils % 28 Lymphocytes % 6 Monocytes % 6 Neutrophils # (Manual) 11.2 Differential Comment FINAL DIFF MANUAL Toxic Granulation 1+ Toxic Vacuolation PRESENT Platelet Estimate RARE Platelet Morphology Comment NORMAL Acanthocytes OCC Prothrombin Time 14.5 Prothromb Time International 1.3 Ratio Activated Partial 40.1 Thromboplast Time Blood Gas Puncture Site RT FEMORAL Blood Gas Patient Temperature 98.6 Blood Gas HCO3 11 Blood Gas Base Excess -13.9 Blood Gas Oxygen Saturation 93 Arterial Blood pH 7.36 Arterial Blood Partial 20 Pressure CO2 Arterial Blood Partial 75 Pressure O2 Arterial Blood Oxygen Content 15.1 Arterial Blood 1.4 Carboxyhemoglobin Arterial Blood Methemoglobin 0.2 Blood Gas Hemoglobin 11.5 Oxygen Delivery Device NASAL CANNULA Blood Gas Liter Flow 2 Test 4/17/17 4/17/17 4/18/17 4/18/17 22:40 23:00 00:30 01:29 Lactic Acid Level 6.6 Blood Type A NEGATIVE Antibody Screen NEGATIVE Blood Bank Comment Ammonia 13 Blood Gas Puncture Site RT BRACHIAL Blood Gas Patient Temperature 98.6 Blood Gas HCO3 13 Blood Gas Base Excess -14.7 Blood Gas Oxygen Saturation 98 Arterial Blood pH 7.14 Arterial Blood Partial 39 Pressure CO2 Arterial Blood Partial 359 Pressure O2 Arterial Blood Oxygen Content 17.5 Arterial Blood 0.4 Carboxyhemoglobin Arterial Blood Methemoglobin 0.5 Blood Gas Hemoglobin 12.0 Oxygen Delivery Device VENTILATOR Blood Gas Ventilator Setting AC/14/400/PEEP5 Blood Gas Inspired Oxygen 100 Test 09/28/16 02:00 Lactic Acid Level 7.6 Date/Time Procedure Status Source Growth 09/27/16 22:40 Aerobic Blood Culture Received Blood Peripheral Pending 09/27/16 22:40 Anaerobic Blood Culture Received Blood Peripheral Pending 09/27/16 22:25 Urine Culture Worksheet Urine Clean Catch Pending Result Diagram: 09/27/16 2230 09/27/16 2230 Imaging Last 24 hours Impressions Chest X-Ray 09/28/16 0101 Signed Impressions: Service Date/Time: Wednesday, September 28, 2016 01:18 - CONCLUSION: Endotracheal tube and nasogastric are in good position Erick Wright MD Head CT [id number] Signed Impressions: Service Date/Time: Wednesday, September 28, 2016 02:26 - CONCLUSION: Normal examination. Erick Wright MD Abdomen/Pelvis CT [id number] Signed Impressions: Service Date/Time: Wednesday, September 28, 2016 02:30 - CONCLUSION: Small areas of lower lobe consolidation the lungs possible atelectasis. Solid organs of the abdomen are unremarkable without IV contrast. Some free fluid in the pelvis. Erick Wright MD Chest X-Ray 09/27/16 Signed Impressions: Service Date/Time: Tuesday, September 27, 2016 22:32 - CONCLUSION: No acute cardiopulmonary disease demonstrated. Biju Richardson MD Assessment and Plan Problem List: (1) Adjustment disorder with disturbance of emotion ICD Code: F43.29 Status: Acute (2) UTI (urinary tract infection) ICD Code: N39.0 Status: Acute (3) Acute renal failure ICD Code: N17.9 Status: Acute (4) Coagulopathy ICD Code: D68.9 Status: Acute (5) Thrombocytopenia ICD Code: D69.6 Status: Acute (6) Sepsis ICD Code: A41.9 Status: Acute Assessment and Plan Respiratory failure - Intubated for an airway protection - Continue mechanical ventilation - Frequent ABGs and chest x-ray - No weaning until neurologically improved Lactic acidosis - Methamphetamine toxic effect - IV fluid hydration - Sodium bicarbonate - Monitor trend - CT abdomen negative for acute events - Monitor closely for bowel infarction from methamphetamine toxicity Sepsis - However hyperthermia could be also due to above - Hypotension resolved with IV fluid boluses - Broad-spectrum antibiotics - Follow-up cultures - ID consult Polysubstance abuse - Monitor for withdrawal - Benzodiazepines infusion Thrombocytopenia - Possible DIC - Monitor for signs of bleeding - Hematology consult DVT GI prophylaxis - Teds SCDs - No pharmacological prophylaxis due to severe thrombocytopenia - IV Pepcid Critical Care: The total critical care time was 35 minutes. Time to perform other separately billable procedures was not included in the critical care time. Problem Qualifiers (1) Acute renal failure: Qualified Code: N17.9 - Acute renal failure, unspecified acute renal failure type (2) Sepsis: Qualified Code: A41.9 - Sepsis, due to unspecified organism Sly Berrios MD Sep 28, 2016 04:28
[2016-09-28 04:53] LABS: BLOOD GAS BASE EXCESS -5.7 mmol/L (-2-2); BLOOD GAS CARBOXYHEMOGLOBIN 1.4 % (0-4); BLOOD GAS HCO3 18 mmol/L (22-26); BLOOD GAS O2 HGB SATURATION 97 % (90-100); BLOOD GAS OXYGEN CONTENT 15.9 Vol % (12.0-20.0); BLOOD GAS PCO2 31 mmHg (38-42); BLOOD GAS PO2 157 mmHg (61-120); BLOOD GAS TOTAL HGB 11.5 G/DL (12.0-16.0); TEMP CORR TO 98.6
[2016-09-28 04:54] LABS: CRITICAL VALUE NO; DRAW SITE RT RADIAL; FIO2 50 %; NUMBER OF ARTERIAL PUNCTURES 1; OXYGEN DEVICE VENTILATOR; STAT NO; ULNAR PULSE PRESENT
--- NOTE | 2016-09-28 07:56 | HHI.CCPN ---
Subjective Remarks/Hospital Course 31-year-old female with history of methamphetamine abuse was brought in by EMS for altered mental status. Family member reportedly called EMS because patient was combative at home. Patient was given Ativan 2 mg IV. Patient became more lethargic on the way to the ED. She was given Narcan IV by EMS and was extremely combative subsequently. She was intubated by ER attending for an airway protection. Subjective 09/28: Seen and examined. Off all vasopressors. Sedated with Versed and fentanyl drips. Minimal urine output noted. Lactate still elevated. Diffuse purpuric rash upper and lower extremities Objective Vital Signs Date Time Temp Pulse Resp B/P Pulse Ox O2 Delivery O2 Flow Rate FiO2 09/28/16 06:00 100.5 127 30 107/60 100 09/28/16 04:57 40 09/28/16 02:29 Ventilator 09/28/16 00:21 3 Intake and Output 09/27/16 09/27/16 09/28/16 08:00 16:00 00:00 Intake Total 2000 ml Balance 2000 ml Result Diagram: 09/27/16 2230 09/27/16 2230 Other Results Microbiology Date/Time Procedure Status Source Growth 09/28/16 05:04 Aerobic Blood Culture Received Blood Peripheral Pending 09/28/16 05:04 Anaerobic Blood Culture Received Blood Peripheral Pending 09/27/16 22:25 Urine Culture Worksheet Urine Clean Catch Pending Imaging Last Impressions Chest X-Ray 09/28/16 0101 Signed Impressions: Service Date/Time: Wednesday, September 28, 2016 01:18 - CONCLUSION: Endotracheal tube and nasogastric are in good position Erick Wright MD Head CT 09/27/168 Signed Impressions: Service Date/Time: Wednesday, September 28, 2016 02:26 - CONCLUSION: Normal examination. Erick Wright MD Abdomen/Pelvis CT 09/27/16 7283 Signed Impressions: Service Date/Time: Wednesday, September 28, 2016 02:30 - CONCLUSION: Small areas of lower lobe consolidation the lungs possible atelectasis. Solid organs of the abdomen are unremarkable without IV contrast. Some free fluid in the pelvis. Erick Wright MD Objective Remarks GENERAL: 31-year-old female, critically ill with diffuse ecchymosis/ purpura and mottled skin. Sedated and intubated SKIN: Cool and dry. Diffuse purpuric rash with ecchymosis and purpura HEAD: Normocephalic. EYES: PERRL 2 mm bilaterally and sluggish. No scleral icterus. No injection or drainage. NECK: Supple, trachea midline. No JVD or lymphadenopathy. CARDIOVASCULAR: Tachycardic, RR. S1, S2. No S4. 3/6 pansystolic murmur with fading diastolic rumbling murmur RESPIRATORY: Few crackles at the bases bilaterally. No wheezing rales or rhonchi. GASTROINTESTINAL: Abdomen soft, non-tender, nondistended. Tattoo in left lower quadrant. MUSCULOSKELETAL: No significant peripheral edema. I don't identify any track marking. BACK: Nontender without obvious deformity. No CVA tenderness. NEURO: Pupils are reactive. Positive gag. Currently not withdrawing to pain. A/P Problem List: (1) Adjustment disorder with disturbance of emotion ICD Code: F43.29 Status: Acute (2) UTI (urinary tract infection) ICD Code: N39.0 Status: Acute (3) Acute renal failure ICD Code: N17.9 Status: Acute (4) Coagulopathy ICD Code: D68.9 Status: Acute (5) Thrombocytopenia ICD Code: D69.6 Status: Acute (6) Sepsis ICD Code: A41.9 Status: Acute Assessment and Plan Neuro/Psych: Positive toxicology for amphetamines/opiates History of polysubstance abuse Patient is currently in Versed drip at 7 mg an hour fentanyl drip at 100 is an hour for sedation/analgesia while intubated Goal of RA SS -2 Daily sedation vacation when clinically indicated Head CT on admission revealed no acute intracranial findings Toxicology was positive for amphetamines and opiates. 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 Currently off Levophed and vasopressin. Goal to keep MAP greater than 65 Bedside echocardiogram reveals large tricuspid valvular vegetation. Await official reading We'll consult CT surgery but not candidate for valva replacement Obtain records from [facility] from previous surgery Troponin negative. Resp: Acute respiratory failure History of tobaccoism [facility] 14/400/06/17/39 Ventilator bundle Bronchodilator therapy every 4 hours and as needed Chest x-ray revealed possible left pleural effusion versus atelectasis. Follow-up on ABG this am. Follow chest x-ray in a.m. No spontaneous breathing trials until more stable. GI: History of hepatitis C Elevated total bilirubin Elevated AST Hypoalbuminemia Patient is written for Nepro goal 40 cc an hour Protonix for GI prophylaxis Colace/Senokot for bowel regimen : Vu place for accurate I's and O's in a critically ill patient Endo: Sliding scale insulin Accu-Cheks every 6 hours to maintain euglycemia/low regimen TSH within normal limits Renal: Acute kidney injury Follow-up urine electrolytes/eosinophils CT abdomen/pelvis reveal no hydronephrosis Currently on bicarbonate drip. We'll consult nephrology. No acute indication for hemodialysis at this time. Heme: Thrombocytopenia Leukocytosis History of cervical cancer Recheck coag/fibrinogen this a.m. Transfuse 2 pack platelets overnight ID: Severe sepsis Currently on vancomycin 1 dose, aztreonam 1 g every 8 and Flagyl. Pertinent cultures 09/28 - blood cultures 2 - pending 09/27 - blood cultures 2 - pending 09/27 - urine - pending Noted penicillin allergy. Infectious disease consulted for antibiotic regimen recommendations MSK: PT evaluate and treat/range of motion FEN: Hyponatremia Replace electrolytes as clinically indicated Recheck BMP this am with magnesium phosphorus Access - Utilize right femoral TLC. Remove once platelets adequate corrected. Prophylaxis - GI - Protonix - DVT - holding pharmacological prophylaxis in light of severe thrombocytopenia Critical Care: The total additional critical care time was 35 minutes. Time to perform other separately billable procedures was not included in the critical care time. Resp iratory failure - Intubated for an airway protection - Continue mechanical ventilation - Frequent ABGs and chest x-ray - No weaning until neurologically improved Lactic acidosis - Methamphetamine toxic effect - IV fluid hydration - Sodium bicarbonate - Monitor trend - CT abdomen negative for acute events - Monitor closely for bowel infarction from methamphetamine toxicity Sepsis - However hyperthermia could be also due to above - Hypotension resolved with IV fluid boluses - Broad-spectrum antibiotics - Follow-up cultures - ID consult Polysubstance abuse - Monitor for withdrawal - Benzodiazepines infusion Thrombocytopenia - Possible DIC - Monitor for signs of bleeding - Hematology consult DVT GI prophylaxis - Teds SCDs - No pharmacological prophylaxis due to severe thrombocytopenia - IV Pepcid Critical Care: The total critical care time was 35 minutes. Time to perform other separately billable procedures was not included in the critical care time. Problem Qualifiers (1) Acute renal failure: Qualified Code: N17.9 - Acute renal failure, unspecified acute renal failure type (2) Sepsis: Qualified Code: A41.9 - Sepsis, due to unspecified organism Erwin Chandler MD Sep 28, 2016 07:56
[2016-09-28] MEDS ORDERED: RESP: ALBUTEROL 2.5 MG/3 ML NEB (PRN) NEB (08:00)
[2016-09-28] MEDS ORDERED: GLUCAGON 1 MG/ML VIAL OTHER PRN (08:00)
[2016-09-28] MEDS ORDERED: DEXTROSE 50% IN WATER 50 ML VIAL(D50) IV PUSH PRN (08:00)
[2016-09-28] MEDS: CHLORHEXIDINE 0.12% (ORAL KIT) 15 ML CUP MT SCH ×2 (08:05→21:30)
[2016-09-28] MEDS: AZTREONAM INJ 1,000 MG in SODIUM CHLORIDE 0.9% INJ 100 ML IV SCH ×2 (08:05→15:37)
[2016-09-28] MEDS: SODIUM CHLORIDE 0.9% FLUSH 10 ML FLUSH IV FLUSH SCH ×2 (08:05→21:30)
[2016-09-28] MEDS: PANTOPRAZOLE SODIUM 40 MG VIAL IV PUSH SCH (08:05)
[2016-09-28] MEDS: DOCUSATE SODIUM 100 MG/10 ML UDC PO SCH ×2 (08:05→21:28)
[2016-09-28] MEDS: SENNOSIDES SYRUP 8.8 MG/5 ML CUP PO SCH (08:05)
[2016-09-28 08:57] LABS: APTT (PATIENT) 35.5 SEC (24.3-30.1); INTERNATIONAL NORMALIZED RATIO 1.3 RATIO; PROTHROMBIN TIME - PATIENT 14.4 SEC (9.8-11.6)
[2016-09-28] MEDS ORDERED: FAMOTIDINE 20 MG/2 ML VIAL IV PUSH SCH ×2 (09:00)
[2016-09-28] MEDS ORDERED: DOCUSATE SODIUM 50 MG/SENNA 8.6 MG TAB PO SCH (09:00)
[2016-09-28 10:04] LABS: ANION GAP 15 MEQ/L (5-15); BICARBONATE 24.1 MEQ/L (21.0-32.0); BLOOD UREA NITROGEN 77 MG/DL (7-18); CHLORIDE 97 MEQ/L (98-107); CREATINE KINASE 205 U/L (26-192); GLOMERULAR FILTRATION RATE 17 ML/MIN (>89); MAGNESIUM 2.1 MG/DL (1.5-2.5); SODIUM (NA) 136 MEQ/L (136-145)
--- NOTE | 2016-09-28 10:06 | OTSOAPIP ---
TIME SESSION COMPLETED: 10:00 TREATMENT TIME: 0 MINS. CHART REVIEWED. PATIENT ADMITTED WITH SEPSIS, THROMBOCYTOPENIA, COAGULOPATHY, ACUTE RENAL FAILURE, RESPIRATORY DISTRESS REQUIRING VENT SUPPORT VIA INTUBATED. VITALS: HEART RATE 137, BLOOD PRESSURE 102/66, SPO2 95% INTERDISCIPLINARY COMMUNICATION: CONSULTED WITH NURSING DUE TO ELEVATE HEART RATE OF 137 WILL HOLD ASSESSMENT. NURSING AGREED PLAN: WILL SEE PATIENT NEXT TREATMENT DAY. Therapist: ALEXANDRE FORD/Peyman Signature on file
[2016-09-28 10:32] LABS: CKMB 10.4 NG/ML (0.5-3.6)
[2016-09-28] MEDS ORDERED: SODIUM CHLOR 0.45% 500 ML INJ 500 ML IV ONE (10:45)
[2016-09-28] MEDS ORDERED: SODIUM CHLOR 0.9% 1000 ML INJ 1,000 ML IV ONE ×2 (10:45→16:30)
[2016-09-28 11:37] LABS: HEMATOCRIT 35.3 % (35.0-46.0); MEAN CELL VOLUME 84.5 FL (80.0-100.0); MEAN CORPUSCULAR HEMOGLOBIN 28.2 PG (27.0-34.0); MEAN CORPUSCULAR HGB CONC 33.3 % (32.0-36.0); RED BLOOD COUNT 4.18 MIL/MM3 (4.00-5.30); WHITE BLOOD COUNT 20.3 TH/MM3 (4.0-11.0)
[2016-09-28 11:42] LABS: PLATELET COUNT 17 TH/MM3 (150-450)
[2016-09-28] MEDS: INSULIN NovoLIN REGULAR SUPPLEMENTAL SCALE SQ SCH ×2 (12:00→17:41)
[2016-09-28] MEDS: SODIUM CHLOR 0.9% 1000 ML INJ 1,000 ML IV SCH ×2 (13:11→18:45)
--- NOTE | 2016-09-28 14:47 | EKG ---
Date Performed: 09/27/2016 Time Performed: 22:13:49 PTAGE: 31 years EKG: BASELINE ARTIFACT PRESENT. Probable SINUS TACHYCARDIA WITH SHORT OR INTERVAL RIGHT BUNDLE B RANCH BLOCK ABNORMAL ECG COMPARED TO PRIOR ELECTROCARDIOGRAM, Rate has increased. PREVIOUS TRACING : 11/16/2015 13.54 DOCTOR: Stiven Redd Interpretating Date/Time 09/28/2016 14:46:21
--- NOTE | 2016-09-28 15:55 | EC ---
Study Study Date:09/28/2016 STUDY CONCLUSIONS SUMMARY - Left ventricle: The cavity size was normal. Wall thickness was normal. Systolic function was mildly reduced. The estimated ejection fraction was in the range of 45% to 50%. Wall motion was normal; there were no regional wall motion abnormalities. - Tricuspid valve: There is a very large (1 x 4cm) mobile denisty attached on the medial portion of the replaced tricuspid valve, consistent with endocarditis. - Pulmonary arteries: PA peak pressure: 34mm Hg (S). If LV function is below 40, please consider prescribing an ACEI or ARB or document rationale for non-use. PROCEDURE DATA STUDY STATUS: Elective. Procedure: Transthoracic echocardiography. Image quality was good. Scanning was performed from the parasternal, apical, and subcostal acoustic windows. Study completion: The patient tolerated the procedure well. Transthoracic echocardiography. M-mode, complete 2D, complete spectral Doppler, and color Doppler. Patient status: Inpatient. CARDIAC ANATOMY LEFT VENTRICLE: The cavity size was normal. Wall thickness was normal. Systolic function was mildly reduced. The estimated ejection fraction was in the range of 45% to 50%. Wall motion was normal; there were no regional wall motion abnormalities. AORTIC VALVE: Trileaflet; normal thickness leaflets. Doppler: Transvalvular velocity was within the normal range. There was no stenosis. No regurgitation. AORTA: Aortic root: The aortic root was normal in size. MITRAL VALVE: Structurally normal valve. Doppler: Transvalvular velocity was within the normal range. There was no evidence for stenosis. No regurgitation. LEFT ATRIUM: The atrium was normal in size. RIGHT VENTRICLE: The cavity size was normal. Wall thickness was normal. PULMONIC VALVE: Doppler: Transvalvular velocity was within the normal range. There was no evidence for stenosis. No regurgitation. TRICUSPID VALVE: There is a very large (1 x 4cm) mobile denisty attached on the medial portion of the replaced tricuspid valve, consistent with endocarditis. Doppler: Transvalvular velocity was within the normal range. No regurgitation. PULMONARY ARTERY: The main pulmonary artery was normal-sized. Systolic pressure was within the normal range. RIGHT ATRIUM: The atrium was normal in size. PERICARDIUM: There was no pericardial effusion. SYSTEMIC VEINS: Inferior vena cava: The vessel was normal in size. BASIC MEASUREMENTS ADULT Normal Left ventricle LV internal dimension, ED, chordal level, *42.7 mm 43-52 PLAX LV internal dimension, ES, chordal level, 34.2 mm 23-38 PLAX Fractional shortening, chordal level, PLAX *20 % >29 LV posterior wall thickness, ED 6.74 mm IVS/LVPW ratio, ED 1.08 <1.3 Ventricular septum Septal thickness, ED 7.26 mm Aortic valve Leaflet separation 18 mm 15-26 Left atrium Anterior-posterior dimension 26 mm Right ventricle RV internal dimension, ED, PLAX 19.5 mm 19-38 BASIC MEASUREMENTS ADULT Normal Aortic valve Leaflet separation 18 mm 15-26 Aorta Root diameter, ED 26 mm 20-37 DOPPLER MEASUREMENTS ADULT Normal Main pulmonary artery Pressure, S *34 mm Hg =30 Mitral valve Peak E-wave velocity 39.4 cm/s Peak A-wave velocity 64.1 cm/s Peak E/A ratio 0.6 Tricuspid valve Regurgitant peak velocity 172 cm/s Peak RV-RA gradient, S 12 mm Hg Maximal regurgitant velocity 172 cm/s Systemic veins Estimated CVP 5 mm Hg Right ventricle RV pressure, S *34 mm Hg <30 LEGEND: Mean values are shown as u=mean value. Asterisk (*) barroso values outside specified normal range. Prepared and signed by Ninfa Chen [id number]
[2016-09-28] MEDS ORDERED: METOPROLOL TARTRATE 5 MG/5 ML VIAL IV PUSH ONE (16:30)
[2016-09-28 17:27] LABS: HEMATOCRIT 34.8 % (35.0-46.0); MEAN CELL VOLUME 85.1 FL (80.0-100.0); MEAN CORPUSCULAR HEMOGLOBIN 27.7 PG (27.0-34.0); MEAN CORPUSCULAR HGB CONC 32.6 % (32.0-36.0); PLATELET COUNT 32 TH/MM3 (150-450); RED BLOOD COUNT 4.08 MIL/MM3 (4.00-5.30); RED CELL DISTRIBUTION WIDTH 15.4 % (11.6-17.2); WHITE BLOOD COUNT 21.4 TH/MM3 (4.0-11.0)
[2016-09-28 17:30] LABS: REVIEW FLAG FINAL
[2016-09-28 18:07] LABS: BICARBONATE 22.8 MEQ/L (21.0-32.0); MAGNESIUM 2.3 MG/DL (1.5-2.5); POTASSIUM 5.1 MEQ/L (3.5-5.1)
[2016-09-28 18:31] LABS: CALCIUM-PROTEIN CORRECTED 7.3 MG/DL (8.5-10.1)
[2016-09-28] MEDS ORDERED: VANCOMYCIN 1,000 MG/NS 250 ML IV ONE ×2 (21:00)
--- NOTE | 2016-09-28 21:51 | MB ---
cc: TRACY CAMP MD DATE OF CONSULTATION 09/28/2016 REASON FOR CONSULTATION Elevated BUN and creatinine for evaluation. HISTORY OF PRESENT ILLNESS This is a 31-year-old female with past medical history of intravenous drug abuse, history of endocarditis in the past, with valvular surgery done in the past. She was brought to the hospital last night because of altered mental status. According to the history the patient was combative at home and she was given Ativan and was getting more and more lethargic. Was given Narcan by the EMS. She has history of methamphetamine abuse and was found to be in respiratory failure and was intubated and transferred to the intensive care unit. The patient was found to have creatinine of 3.9 on admission. Previously she has creatinine of 0.8, this was March last year. The mother is at bedside and she told me that the patient has been using drugs and now her toxicology screen on admission was positive for amphetamines and opiates only. The patient has been getting now bolus IV fluid. Her blood pressure has been the lower side with a systolic in the 90s and she has been tachycardiac. She was also found to have ecchymosis and mottling of her arms and legs. PAST MEDICAL HISTORY 1. History of drug abuse. 2. Bronchial asthma. 3. Depression. 4. Polysubstance abuse. 5. History of endocarditis. PAST SURGICAL HISTORY History of cardiac valvular surgery for endocarditis. The last one was two years ago according to the mother. REVIEW OF SYSTEMS Cannot be taken. SOCIAL HISTORY The patient has three children. She has a history of drug abuse. FAMILY HISTORY Noncontributory. ALLERGIES SHE IS ALLERGIC TO CODEINE, IODINE AND PENICILLIN. MEDICATIONS Currently she is on: 1. Normal saline 125 an hour. 1. DuoNeb nebulizer. 2. Vancomycin 1 gram one dose was given. 3. Protonix 40 mg q.24 h. 4. Hydrocortisone 50 mg q.6h. 5. Aztreonam 1 gram q. 8-hour. 6. Metronidazole 500 mg q. 8-hour. 7. Midazolam. 8. Fentanyl. PHYSICAL EXAMINATION GENERAL: The patient is intubated and sedated. VITAL SIGNS: Her last blood pressure 98/57. Temperature is 102.1. Pulse is around 135-139. Oxygen saturation 40$ FIO2 is 100%. HEENT: Pupils are mid constricted. Nonicteric sclerae. Conjunctivae pale. NECK: Supple. JVD is not elevated. LUNGS: The patient has bilateral decreased air entry with scattered wheezing. HEART: S1-S2 with tachycardia. ABDOMEN: Distended. Soft. Lax. Bowel sounds decreased. EXTREMITIES: Both arms and the legs have ecchymosis and have mottled appearance. LABORATORY DATA Investigation showing white blood cell count is 21.4, hemoglobin 11.3, platelet count 32. The last BMP is pending but the one before that in the morning showing sodium 136. Potassium 4.0, chloride 97, bicarb 24.1, BUN 77, creatinine 3.24. Calcium 7.0. Corrected calcium is 8.0. Phosphorus 4.8. Creatine kinase 205. Troponin I is less than 0.02. INR 1.3 and PTT of 35.5. Urinalysis showing protein of 100. Urine sodium 14 and creatinine of 204. Eosinophils not seen. Toxicology screen positive for opiates and amphetamines. IMAGING STUDIES The patient has chest x-ray done which shows prosthetic valve. Lung flor grossly clear. CT scan of the abdomen and pelvis was done without IV contrast and it shows lower lobe consolidation of lung, possible atelectasis. Kidneys are reported normal in size and shape. No hydronephrosis. CT scan of the brain was also done which shows normal examination. ASSESSMENT/PLAN 1. Acute kidney injury. 2. Respiratory failure. 3. History of drug abuse. 4. Fever, possible pneumonia. 5. Rule-out sepsis. 6. Thrombocytopenia. 7. Possible urinary tract infection. The patient has so far blood culture positive with staph aureus. Infectious disease has seen the patient. The blood pressure is on the lower side, most likely her acute kidney failure is because of acute tubular necrosis or interstitial nephritis. Urine output is low at this point and it seems like she is behind the fluid so she is getting the IV fluids. After the fluid resuscitation if the urine output is low we will consider starting on diuretic. If there is no improvement possibly she will need dialysis. I did discuss this with the mother and the other family members who are present at the bedside. Thank you for the consultation. I will follow the patient while she is in the hospital. MD ARABELLA Simmons/ISABELA /6:00 PM /9:28 PM
--- NOTE | 2016-09-28 23:09 | PD.ID.CON ---
History of Present Illness Service ID Consult Requested By Dr Baez Reason for Consult sepsis Primary Care Physician No Primary Care Physician Diagnoses: History of Present Illness 31 yo female with active IVDU, h/o tricuspid valve replacement 3 years ago for endocarditis presented yday with 3 days of confusion and combativeness Her family noted mental status change o Tuesday, but pbrough her in yday She was intubated in ER for airwa protection He bllood clx all positive for MRSa SHe was noted to hav a large 1x4 veggetation on her tricuspid valvwe Pt was briefly on pressors and developped dusky disocloration of all her extremeits and nose He is currently having She is unresposive with gag, cough and corneal reflexes present Review of Systems ROS Limitations: Clinical Condition, Intubated, Unresponsive Past Family Social History Allergies: Coded Allergies: Codeine (Verified Allergy, Severe, 09/27/16) patient denies Iodine (Verified Allergy, Severe, hives, 09/27/16) Penicillin (Verified Allergy, Severe, hives, 09/27/16) "throat swollen" *MDRO Multi-Drug Resistant Organism (Verified Adverse Reaction, Unknown, ) MRSA PCR Screen POSITIVE - 09/28/2016 Active Ordered Medications Medications where reviewed in EMR Antibiotics Include: azactam vancomycin Physical Exam Vital Signs Vital Signs Date Time Temp Pulse Resp B/P Pulse Ox O2 Delivery O2 Flow Rate FiO2 09/28/16 20:41 99 40 09/28/16 18:52 102.1 09/28/16 18:00 103.0 09/28/16 18:00 125 09/28/16 16:42 100 40 09/28/16 16:00 40 09/28/16 16:00 140 09/28/16 16:00 140 14 109/67 99 09/28/16 14:00 139 09/28/16 14:00 98.8 09/28/16 13:44 102.1 139 15 98/57 95 09/28/16 13:27 102.4 135 15 97/71 95 09/28/16 13:22 102.4 09/28/16 12:14 96 40 09/28/16 12:00 135 09/28/16 12:00 100.9 135 14 95/59 100 09/28/16 12:00 40 4/18/17 10:00 138 09/28/16 08:12 100 40 09/28/16 08:00 98.9 134 17 105/53 100 09/28/16 08:00 134 09/28/16 08:00 40 09/28/16 06:00 100.5 127 30 107/60 100 09/28/16 06:00 127 09/28/16 05:00 99.1 129 30 101/57 100 09/28/16 04:57 100 40 09/28/16 04:00 50 09/28/16 04:00 129 09/28/16 04:00 100.3 129 30 100/57 100 09/28/16 03:00 101.1 132 30 110/57 100 09/28/16 02:50 50 09/28/16 02:45 100 50 09/28/16 02:40 100 09/28/16 02:29 130 32 131/78 93 Ventilator 50 09/28/16 02:25 98 100 09/28/16 01:48 146/97 09/28/16 01:45 50 09/28/16 01:45 98 50 09/28/16 01:39 119 14 137/87 100 Ventilator 100 09/28/16 01:31 113 14 147/97 100 Ventilator 09/28/16 01:13 112 14 149/96 96 Ventilator 100 09/28/16 01:07 111 14 147/88 90 Ventilator 100 09/28/16 01:06 100 09/28/16 00:51 107 14 122/79 97 Ventilator 50 09/28/16 00:40 98 100 09/28/16 00:35 50 09/28/16 00:21 98.2 102 28 89/57 98 Nasal Cannula 3 09/27/16 23:36 102 32 101/55 98 Nasal Cannula 09/27/16 23:12 103 34 95/61 100 Nasal Cannula 3 Physical Exam CONSTITUTIONAL/GENERAL: This is an adequately nourished patient, in no apparent distress. TUBES/LINES/DRAINS: SKIN: No jaundice, rashes, dusky disocloration of all her extremeits and nose + large areas of hemorragic rash in extremeties HEAD: Atraumatic. Normocephalic. EYES: Pupils equal and round and reactive. Extraocular motions intact. No scleral icterus. No injection or drainage. Fundi not examined. ENT: Nose without bleeding or purulent drainage.Oral mucosae moist orally intubatesd NECK: Trachea midline. Supple, nontender. No palpable thyroid enlargement or nodularity. CARDIOVASCULAR: Regular rate and rhythm without murmurs, gallops, or rubs. No JVD. Peripheral pulses bounding on bl feet dopplerable on b/l hands Well healed median sternotomy scar RESPIRATORY/CHEST: Symmetric, unlabored respirations. Clear to auscultation. Breath sounds equal bilaterally. No wheezes, rales, or rhonchi. GASTROINTESTINAL: Abdomen soft, non-tender, nondistended. No hepato-splenomegaly , or palpable masses. No guarding. Bowel sounds present. GENITOURINARY: Without palpable bladder distension. Vu catheter in place with miniaml urine MUSCULOSKELETAL: Extremities without clubbing, + cyanosis with dark discoloraion, no refill in finger tips, cold hands and forearms warm feet, no edema. + mottling LYMPHATICS: No palpable cervical or supraclavicular adenopathy. NEUROLOGICAL:Unresponsive; not following commands, no spontaneous movement s gag, cough and corneal reflexes present PSYCHIATRIC: unable to assess Laboratory Laboratory Tests Test 09/28/16 09/28/16 09/28/16 09/28/16 00:30 01:29 01:58 02:00 Ammonia 13 Blood Gas Puncture Site RT BRACHIAL Blood Gas Patient Temperature 98.6 Blood Gas HCO3 13 Blood Gas Base Excess -14.7 Blood Gas Oxygen Saturation 98 Arterial Blood pH 7.14 Arterial Blood Partial 39 Pressure CO2 Arterial Blood Partial 359 Pressure O2 Arterial Blood Oxygen Content 17.5 Arterial Blood 0.4 Carboxyhemoglobin Arterial Blood Methemoglobin 0.5 Blood Gas Hemoglobin 12.0 Oxygen Delivery Device VENTILATOR Blood Gas Ventilator Setting AC/14/400/PEEP5 Blood Gas Inspired Oxygen 100 Blood Bank Comment Lactic Acid Level 7.6 Test 09/28/16 09/28/16 09/28/16 09/28/16 04:00 04:44 05:04 08:12 Nasal Screen MRSA (PCR) POSITIVE Blood Gas Puncture Site RT RADIAL Blood Gas Patient Temperature 98.6 Blood Gas HCO3 18 Blood Gas Base Excess -5.7 Blood Gas Oxygen Saturation 97 Arterial Blood pH 7.39 Arterial Blood Partial 31 Pressure CO2 Arterial Blood Partial 157 Pressure O2 Arterial Blood Oxygen Content 15.9 Arterial Blood 1.4 Carboxyhemoglobin Arterial Blood Methemoglobin 1.0 Blood Gas Hemoglobin 11.5 Oxygen Delivery Device VENTILATOR Blood Gas Inspired Oxygen 50 Lactic Acid Level 6.4 Prothrombin Time 14.4 Prothromb Time International 1.3 Ratio Activated Partial 35.5 Thromboplast Time Fibrinogen 171 Sodium Level 136 Potassium Level 4.0 Chloride Level 97 Carbon Dioxide Level 24.1 Anion Gap 15 Blood Urea Nitrogen 77 Creatinine 3.24 Estimat Glomerular Filtration 17 Rate Random Glucose 129 Calcium Level 7.0 Protein Corrected Calcium 8.0 Phosphorus Level 4.8 Magnesium Level 2.1 Ammonia 31 Lactate Dehydrogenase 608 Total Creatine Kinase 205 Creatine Kinase MB 10.4 Creatine Kinase MB % 5.1 Troponin I LESS THAN 0.02 C-Reactive Protein 21.00 Total Protein 5.2 Procalcitonin 28.29 Random Vancomycin Level 17.4 Test 09/28/16 09/28/16 09/28/16 09/28/16 08:15 10:56 11:40 17:10 Urine Eosinophils NONE SEEN Urine Random Creatinine 204.7 Urine Random Sodium 14 White Blood Count 20.3 21.4 Red Blood Count 4.18 4.08 Hemoglobin 11.8 11.3 Hematocrit 35.3 34.8 Mean Corpuscular Volume 84.5 85.1 Mean Corpuscular Hemoglobin 28.2 27.7 Mean Corpuscular Hemoglobin 33.3 32.6 Concent Red Cell Distribution Width 15.0 15.4 Platelet Count 17 32 Mean Platelet Volume 10.8 11.4 Blood Smear Pathologist Review Haptoglobin 22 Lactic Acid Level 3.8 3.6 Sodium Level 137 Potassium Level 5.1 Chloride Level 102 Carbon Dioxide Level 22.8 Anion Gap 12 Blood Urea Nitrogen 87 Creatinine 3.46 Estimat Glomerular Filtration 16 Rate Random Glucose 114 Calcium Level 6.2 Protein Corrected Calcium 7.3 Phosphorus Level 5.2 Magnesium Level 2.3 Lactate Dehydrogenase 982 Total Protein 4.8 Complement C3 49 Complement C4 6 Date/Time Procedure Status Source Growth 09/28/16 09:08 Influenza Types A,B Antigen (RICO) - Final Complete Nasal Aspirate NEGATIVE FOR FLU A AND B ANTIGEN.... 09/28/16 08:19 Gram Stain - Final Resulted Sputum Endotracheal 09/28/16 08:19 Sputum Culture Resulted Sputum Endotracheal Pending 09/28/16 08:17 Influenza Types A,B Antigen (RICO) Ordered Nasal Aspirate Pending 09/28/16 08:15 Legionella Antigen - Final Complete Urine Catheterized Urine PRESUMPTIVE NEGATIVE FOR LEGIONELLA P... 09/28/16 08:15 Streptococcus pneumoniae Antigen (M - Final Complete Urine Catheterized Urine PRESUMPTIVE NEGATIVE FOR STREPTOCOCCU... 09/28/16 05:04 Aerobic Blood Culture Received Blood Peripheral Pending 09/28/16 05:04 Anaerobic Blood Culture Received Blood Peripheral Pending 09/27/16 22:40 Aerobic Blood Culture - Preliminary Resulted Blood Peripheral Gram Positive Cocci 09/27/16 22:40 Anaerobic Blood Culture - Preliminary Resulted Gram Positive Cocci 09/27/16 22:25 Urine Culture - Preliminary Resulted Urine Clean Catch NO GROWTH IN 24 HOURS. Result Diagram: 09/28/16 1710 09/28/16 1710 Imaging Last Impressions Chest X-Ray 09/28/16 0101 Signed Impressions: Service Date/Time: Wednesday, September 28, 2016 01:18 - CONCLUSION: Endotracheal tube and nasogastric are in good position Erick Wright MD Head CT [id number] Signed Impressions: Service Date/Time: Wednesday, September 28, 2016 02:26 - CONCLUSION: Normal examination. Erick Wright MD Abdomen/Pelvis CT [id number] Signed Impressions: Service Date/Time: Wednesday, September 28, 2016 02:30 - CONCLUSION: Small areas of lower lobe consolidation the lungs possible atelectasis. Solid organs of the abdomen are unremarkable without IV contrast. Some free fluid in the pelvis. Erick Wright MD Assessment and Plan Assessment and Plan Recurrent truicuspid valve endocarditis h/o tricuspid valve sx 2/2 endocariditis 3 yrs ago Active IVDU Multi organ failure (ARF, VDRF, DIC, encephalopathy)Pt is criticval and unstable Prognosis is poor Hemorrhagi purpura likely 2/2 DIC Low grade CN allergy (mom thomas not remember what happened, not airwa y problems, not rash; magdaleno nausea) - cont vancomycin - start high dose CFTX - add gentamycin, rifampin - dc azactam Discussed Condition With Zhanna García MD Sep 28, 2016 23:09
[2016-09-28] MEDS: PHENYLEPHRINE INJ 160 MG in DEXTROSE 5% IN WATE 500 ML INJ 484 ML IV SCH ×2 (23:38)
[2016-09-29] VITALS (13 sets, daily range): BP systolic 61–129; BP diastolic 34–64; PULSE 97–113; RESP 14–16; TEMP 101.2–102.9; O2SAT 98–100
[2016-09-29] MEDS ORDERED: Gentamicin Consult Pharmacy 1 EA OTHER SCH (00:15)
[2016-09-29] MEDS ORDERED: NOREPINEPHRINE-DEXTROSE DRIP 250 ML IV ONE (00:55)
[2016-09-29] MEDS: cefTRIAXone INJ 2,000 MG in SODIUM CHLORIDE 0.9% INJ 100 ML IV SCH ×2 (01:10→12:39)
[2016-09-29] MEDS: RIFAMPIN INJ 300 MG in SODIUM CHLORIDE 0.9% INJ 100 ML IV SCH ×2 (01:49→14:39)
[2016-09-29] MEDS ORDERED: SODIUM BICARBONATE 8.4% INJ 50 MEQ/50 ML SYR ONE ×3 (02:06→03:43)
[2016-09-29 02:42] LABS: BLOOD GAS BASE EXCESS -21.3 mmol/L (-2-2); BLOOD GAS CARBOXYHEMOGLOBIN 0.2 % (0-4); BLOOD GAS HCO3 8 mmol/L (22-26); BLOOD GAS METHEMOGLOBIN 1.2 % (0-2); BLOOD GAS O2 HGB SATURATION 76 % (90-100); BLOOD GAS OXYGEN CONTENT 10.9 Vol % (12.0-20.0); BLOOD GAS PCO2 39 mmHg (38-42); BLOOD GAS PO2 66 mmHg (61-120); BLOOD GAS TOTAL HGB 10.1 G/DL (12.0-16.0); TEMP CORR TO 98.6
[2016-09-29 02:43] LABS: CRITICAL VALUE YES; OXYGEN DEVICE VENTILATOR
[2016-09-29 02:44] LABS: DRAW SITE RT BRACHIAL; FIO2 40 %; NUMBER OF ARTERIAL PUNCTURES 2; ULNAR PULSE PRESENT; VENT SETTINGS PRVC/AC
[2016-09-29 02:45] LABS: STAT NO
[2016-09-29] MEDS: SODIUM CHLOR 0.9% 1000 ML INJ 1,000 ML IV SCH (02:54)
[2016-09-29] MEDS: VASOPRESSIN INJ 40 UNITS in DEXTROSE 5% IN WATER 100ML INJ 98 ML IV SCH ×4 (02:55→03:00)
[2016-09-29] MEDS: HYDROCORTISONE SOD SUCCINATE 100 MG VIAL IV SCH ×3 (02:59→13:52)
[2016-09-29] MEDS ORDERED: GENTAMICIN INJ 300 MG in SODIUM CHLORIDE 0.9% INJ 100 ML IV SCH (03:00)
[2016-09-29] MEDS: RESP: ALBUTEROL 2.5 MG/IPRATROPIUM 0.5 MG NEB (SCH) INH ×3 (03:29→12:16)
[2016-09-29] MEDS ORDERED: SODIUM BICARBONATE 8.4% INJ 50 ML ONE ×2 (03:40→03:44)
[2016-09-29] MEDS: SODIUM BICARBONATE 8.4% INJ 150 MEQ in DEXTROSE 5% IN WATE 1000ML INJ 1,000 ML IV SCH ×4 (03:52→14:39)
[2016-09-29] MEDS: NOREPINEPHRINE 4 MG/D5W 250 ML IV SCH ×4 (03:52→10:19)
[2016-09-29] MEDS: CHLORHEXIDINE GLUCONATE 2 % 1 PACK (2 CLOTHS) TOP SCH (04:00)
[2016-09-29] MEDS ORDERED: EPINEPHrine HCL (1:1000) 1 MG/ML VIAL ONE (04:44)
[2016-09-29 04:55] LABS: AUTOMATED NEUTROPHIL # 18.3 TH/MM3 (1.8-7.7); BASOPHIL # 0.2 TH/MM3 (0-0.2); BASOPHIL % 0.7 % (0.0-2.0); EOSINOPHIL # 0.2 TH/MM3 (0-0.4); EOSINOPHIL % 0.6 % (0.0-4.0); HEMATOCRIT 27.1 % (35.0-46.0); LYMPH % 14.9 % (9.0-44.0); LYMPHOCYTE # 3.8 TH/MM3 (1.0-4.8); MEAN CELL VOLUME 90.3 FL (80.0-100.0); MEAN CORPUSCULAR HEMOGLOBIN 27.8 PG (27.0-34.0); MEAN CORPUSCULAR HGB CONC 30.7 % (32.0-36.0); MONO % 10.8 % (0.0-8.0); RED CELL DISTRIBUTION WIDTH 16.2 % (11.6-17.2); WHITE BLOOD COUNT 25.2 TH/MM3 (4.0-11.0)
[2016-09-29 05:00] LABS: HEMO FLAGS AUTO DIFF
[2016-09-29 05:01] LABS: PLATELET COUNT 13 TH/MM3 (150-450)
[2016-09-29 05:44] LABS: BICARBONATE 14.5 MEQ/L (21.0-32.0); MAGNESIUM 2.9 MG/DL (1.5-2.5); TOTAL BILIRUBIN ADULT 2.8 MG/DL (0.2-1.0)
[2016-09-29 05:53] LABS: POTASSIUM 6.6 MEQ/L (3.5-5.1)
[2016-09-29] MEDS: INSULIN NovoLIN REGULAR SUPPLEMENTAL SCALE SQ SCH ×3 (06:00→12:41)
[2016-09-29 06:51] LABS: BANDS 12 % (0-6); CORRECTED NUCLEATED RBC 2 /100 WBC (0-0); MYELOCYTES 3 % (0-0); NEUTROPHIL # MANUAL DIFF 20.2 TH/MM3 (1.8-7.7); PLATELET ESTIMATE SMEAR LOW (NORMAL); PLATELET MORPHOLOGY NORMAL (NORMAL); POLYS (SEG NEUTROPHILS) 65 % (16-70); SCAN/DIFF FINAL DIFF MANUAL; TOXIC GRANULATION 1+ (NORMAL); WBC DIFF SAMPLE 100
[2016-09-29 06:52] LABS: OVALOCYTES 1+ (NORMAL); TOXIC VACUOLATION PRESENT (NONE SEEN)
--- NOTE | 2016-09-29 07:01 | MB ---
cc: VIRGIE CHOPRA M.D. DATE OF CONSULTATION 09/28/2016 NOTE I was trying to dictate yesterday on 09/28, but the Super Vitamin D system was down. REASON FOR CONSULTATION Consult requested by high rigger for evaluation of thrombocytopenia. HISTORY OF PRESENT ILLNESS Faviola is a 31-year-old female. She was brought in by paramedics after she had acute change in mental status, found by the family members. The patient upon arrival in the emergency room was very lethargic and required intubation. The patient has a history of IV drug abuse and methamphetamine abuse in the past. The admission CBC shows severe thrombocytopenia with a platelet count of 11, white count of 12.7, 28% bands. I have been asked to see the patient for thrombocytopenia. The patient is critically ill. She is in the intensive care unit. She is on the ventilator. She is having labored breathing, type of agonal breathing. Multiple family members are present at the bedside. REVIEW OF SYSTEMS Not possible as the patient is on the ventilator. PAST MEDICAL HISTORY History is obtained through review of the records. PAST MEDICAL HISTORY 1. Depression. 2. Asthma. 3. IV drug abuser. PAST SURGICAL HISTORY Not listed. ALLERGIES CODEINE. IODINE. PENICILLIN. FAMILY HISTORY Noncontributory. SOCIAL HISTORY The patient is a polysubstance drug abuser. PHYSICAL EXAMINATION GENERAL: She is a well-developed, acutely ill patient with dusky extremities with labored breathing. VITAL SIGNS: Temperature 102.1, heart rate is 139, blood pressure is 98/57. HEENT: The pupils are reactive to light. Dusky discoloration noted on the right side of the face. The patient is intubated. NECK: No lymphadenopathy noted. LUNGS: Clear. No wheezing or rales. HEART: Tachycardia. ABDOMEN: Soft. Bowel sounds present. EXTREMITIES: Diffuse dusky discoloration of all four extremities. NEUROLOGY: The patient is sedated, on the ventilator. ASSESSMENT 1. Thrombocytopenia due to sepsis as well as DIC. 2. Staph aureus MRSA sepsis. 3. Leukocytosis with bandemia secondary to sepsis. PLAN I have reviewed her available records and I have discussed with multiple family members. The patient is unfortunately critically ill. She is an IV drug abuser. She previously has a history of endocarditis. She had a tricuspid valve replacement. All four blood culture bottles show MRSA. Infectious Disease has been consulted and they have been managing the antibiotics. The patient had received platelet transfusion this morning and her platelet count has improved to 32. The hemoglobin is 11.8. White count went up to 21.4. The patient has 28% bandemia on arrival, also toxic granulation, toxic vacuolation noted as well. These are all consistent with the severe sepsis. RECOMMENDATIONS Recommendation is to transfuse platelets if it is less than 15 or for any evidence of bleeding. Also monitor the fibrinogen for DIC. If the fibrinogen is less than 100, then the patient will need cryoprecipitate for coagulopathy. The patient is critically ill. All her four extremities have dusky discoloration as well as the right side of the face. She is on the ventilator with agonal breathing. I doubt that the patient is going to survive, but the family is hopeful that she will respond to the antibiotics and she will turn around. Further recommendations based on her hospital stay. Thank you for asking my opinion. Jose Juan Chopra MD /MASSIEL /5:36 AM /6:46 AM ERNESTINE
[2016-09-29] MEDS: PHENYLEPHRINE INJ 160 MG in DEXTROSE 5% IN WATE 500 ML INJ 484 ML IV SCH ×2 (07:04)
[2016-09-29] MEDS: CHLORHEXIDINE 0.12% (ORAL KIT) 15 ML CUP MT SCH (08:00)
--- NOTE | 2016-09-29 08:31 | MB ---
cc: ARMANDO RANDALL MD DATE OF CONSULTATION: 09/28/2016 DATE OF : 1985 REASON FOR CONSULTATION: Altered mental status HISTORY OF PRESENT ILLNESS: The patient is a 31 year-old female brought in by EMS for altered mental status. Apparently family member said she was combative at home, was given some IV Ativan, became more lethargic, was then given Narcan by EMS, became extremely combative, was intubated by ER attending for airway protection. The patient has a longstanding history of drug use since the age of 16, with IV drug use, prior history of mitral valve replacement and then a redo valve replacement, unsure of exactly which valve. However, the family states that she had initial mitral valve surgery at [facility] many years ago and then had repeat valve surgery at [facility] due to endocarditis in 2013. She was recently admitted at [facility] for endocarditis with MRSA in the blood and was sent to rehab for IV therapy. She signed herself out. The patient is critically ill on a ventilator. Currently off all pressors, sedated on Versed and fentanyl. She has minimal urine output, purpuric rash upper and lower extremities with cyanosis to both of her hands and lower extremities, also to the front of her nose. PAST MEDICAL HISTORY: As above. REVIEW OF SYSTEMS: Unobtainable. PHYSICAL EXAMINATION: Chronically ill female. VITAL SIGNS: Blood pressure 100/60, heart rate 140. A critically-ill white female. Diffuse ecchymosis, purpura, mottled skin, sedated and intubated. Skin: Cool and dry. HEENT: Pupils are 2 millimeter bilaterally, sluggish, no scleral icterus. Neck: Supple. No JVD. Heart: Heart sounds S1-S2, irregular rate and rhythm, grade 3/6 pansystolic murmur with some diastolic murmur. Lungs: Coarse bilateral breath sounds, equal bilaterally. Abdomen: Soft, slightly protuberant. No audible bowel sounds. Extremities: As above. She does have a positive gag, not withdrawing to pain. LABORATORY WORK: Hemoglobin 11, hematocrit 35, white cell count of 21, platelet count 32. She did come in with a platelet count of 11. Chemistry reveals sodium 136, potassium 4.0, BUN 77, creatinine 3.24, lactic acid was 7.6, now down to 6.4, calcium 7.4, protein correct of 8, magnesium 2.1. Troponin less than 0.02, CRP at 21. INR was 1.3, PTT of 40, Tox screen shows positive opiates, positive amphetamines. MRSA screen positive. Blood gas on arrival, pH 736, CO2 of 20 PO2 of 75, bicarb of minus 14. Blood cultures showed gram-positive cocci, staph aureus in the blood, MRSA positive. IMAGING STUDIES: Chest x-ray: ET tube and NG tube in good position. CT abdomen showed some free fluid in the pelvis. Head CT, normal exam. IMPRESSION 1. A very unfortunate 31-year-old with continued IV drug use, polysubstance abuse, Tox positive for amphetamines and opiates. 2. Tricuspid valve endocarditis. 3. History of open heart surgery with tricuspid valve replacement. 4. Severe sepsis. 5. Multisystem organ failure. 6. Lactic acidosis. 7. Respiratory failure. 8. History of Hepatitis C. 9. Acute kidney injury. 10. Pancytopenia. 11. Electrolyte imbalance. The patient overall is a very poor candidate for any repeat or recurrent cardiovascular surgery. No surgery indicated at this time due to her persistent IV drug use and also her severe critically-ill state with multisystem organ failure. I am understanding that the patient is being made a DNR status at this time. Dictated by: MATT Sarmiento Armando GRAYSON /5:38 PM /8:31 AM
[2016-09-29] MEDS: ACETAMINOPHEN 325 MG TAB PO PRN ×2 (08:34→12:45)
[2016-09-29] MEDS: PANTOPRAZOLE SODIUM 40 MG VIAL IV PUSH SCH (08:34)
[2016-09-29] MEDS: SODIUM CHLORIDE 0.9% FLUSH 10 ML FLUSH IV FLUSH SCH (08:37)
[2016-09-29] MEDS: DOCUSATE SODIUM 100 MG/10 ML UDC PO SCH (08:37)
[2016-09-29] MEDS: SENNOSIDES SYRUP 8.8 MG/5 ML CUP PO SCH (08:37)
--- NOTE | 2016-09-29 10:01 | OTSOAPIP ---
TIME SESSION COMPLETED: 9:53 AM TREATMENT TIME: 0 MINS. CHART REVIEWED. NOTED MULTIPLE FAMILY MEMBERS IN PATIENTS ROOM, CONSULTED WITH NURSING WHO REPORTED PATIENT IS NOT MEDICALLY WELL AND HAS A POOR PROGNOSIS.. PLAN: OCCUPATIONAL THERAPY SIGNING OFF DUE TO MEDICAL ISSUES. PLEASE RE-CONSULT IF PATIENT BECOMES MEDICALLY STABLE. Therapist: ALEXANDRE GOMEZ OTR/[facility] Signature on file
[2016-09-29] MEDS ORDERED: RESP: ALBUTEROL 2.5 MG/3 ML NEB (SCH) NEB ONE (10:45)
[2016-09-29] MEDS ORDERED: ALBUMIN HUMAN 25% 25 GM/100 ML BAGP IV ONE (10:45)
[2016-09-29] MEDS ORDERED: SODIUM POLYSTYRENE SULFONATE SUSP 15 GM/60 ML CUP PO ONE ×2 (10:45→15:00)
[2016-09-29] MEDS ORDERED: CALCIUM GLUCONATE 10% 1 GM/10 ML VIAL SLOW IVP ONE ×2 (10:45→15:00)
[2016-09-29] MEDS ORDERED: DEXTROSE 50% IN WATER 50 ML VIAL(D50) IV PUSH ONE ×2 (10:45→15:00)
[2016-09-29] MEDS ORDERED: PHENYLEPHRINE INJ 160 MG in DEXTROSE 5% IN WATE 500 ML INJ 484 ML IV SCH ×2 (10:45)
[2016-09-29] MEDS ORDERED: SODIUM BICARBONATE 8.4% SOLN 50 MEQ/50 ML VIAL SLOW IVP ONE ×2 (10:45→15:00)
--- NOTE | 2016-09-29 10:48 | HHI.CCPN ---
Subjective Remarks/Hospital Course 31-year-old female with history of methamphetamine abuse was brought in by EMS for altered mental status. Family member reportedly called EMS because patient was combative at home. Patient was given Ativan 2 mg IV. Patient became more lethargic on the way to the ED. She was given Narcan IV by EMS and was extremely combative subsequently. She was intubated by ER attending for an airway protection. 09/28: Seen and examined. Off all vasopressors. Sedated with Versed and fentanyl drips. Minimal urine output noted. Lactate still elevated. Diffuse purpuric rash upper and lower extremities Subjective 09/29: Tmax 102. Currently on 3 vasopressors maximized. Diffuse purpura worsening. Actively dying. Patient is currently DNR. Likely withdrawal care after father sees patient. He is currently incarcerated and attempting to release to see daughter. Objective Vital Signs Date Time Temp Pulse Resp B/P Pulse Ox O2 Delivery O2 Flow Rate FiO2 09/29/16 09:16 100 80 09/29/16 07:00 61/38 09/29/16 06:00 101 09/29/16 04:00 102.0 14 09/28/16 02:29 Ventilator 09/28/16 00:21 3 Intake and Output 09/28/16 09/28/16 09/29/16 08:00 16:00 00:00 Intake Total 699 ml 2098 ml 1974 ml Output Total 750 ml 125 ml 70 ml Balance -51 ml 1973 ml 1904 ml Result Diagram: 09/29/16 0435 09/29/16 0435 Other Results Microbiology Date/Time Procedure Status Source Growth 09/28/16 09:08 Influenza Types A,B Antigen (RICO) - Final Complete Nasal Aspirate NEGATIVE FOR FLU A AND B ANTIGEN.... 09/28/16 08:19 Gram Stain - Final Resulted Sputum Endotracheal 09/28/16 08:19 Sputum Culture Resulted Sputum Endotracheal Pending 09/28/16 08:17 Influenza Types A,B Antigen (RICO) Ordered Nasal Aspirate Pending 09/28/16 08:15 Legionella Antigen - Final Complete Urine Catheterized Urine PRESUMPTIVE NEGATIVE FOR LEGIONELLA P... 09/28/16 08:15 Streptococcus pneumoniae Antigen (M - Final Complete Urine Catheterized Urine PRESUMPTIVE NEGATIVE FOR STREPTOCOCCU... 09/28/16 05:04 Aerobic Blood Culture - Preliminary Resulted Blood Peripheral S. Aureus Mrsa Staph Sp Coagulase Negative 09/28/16 05:04 Anaerobic Blood Culture Resulted Blood Peripheral Pending 09/27/16 22:25 Urine Culture - Final Complete Urine Clean Catch NO GROWTH IN 48 HOURS. Imaging Last Impressions Chest X-Ray 09/28/16 0101 Signed Impressions: Service Date/Time: Wednesday, September 28, 2016 01:18 - CONCLUSION: Endotracheal tube and nasogastric are in good position Erick Wright MD Head CT [id number] Signed Impressions: Service Date/Time: Wednesday, September 28, 2016 02:26 - CONCLUSION: Normal examination. Erick Wright MD Abdomen/Pelvis CT [id number] Signed Impressions: Service Date/Time: Wednesday, September 28, 2016 02:30 - CONCLUSION: Small areas of lower lobe consolidation the lungs possible atelectasis. Solid organs of the abdomen are unremarkable without IV contrast. Some free fluid in the pelvis. Erick Wright MD Objective Remarks GENERAL: 31-year-old female, critically ill with diffuse ecchymosis/ purpura and mottled skin. Sedated and intubated SKIN: Cool and dry. Diffuse purpuric rash with ecchymosis and purpura HEAD: Normocephalic. EYES: PERRL 2 mm bilaterally and sluggish. No scleral icterus. No injection or drainage. NECK: Supple, trachea midline. No JVD or lymphadenopathy. CARDIOVASCULAR: Tachycardic, RR. S1, S2. No S4. 3/6 pansystolic murmur with fading diastolic rumbling murmur RESPIRATORY: Few crackles at the bases bilaterally. No wheezing rales or rhonchi. GASTROINTESTINAL: Abdomen soft, non-tender, nondistended. Tattoo in left lower quadrant. MUSCULOSKELETAL: No significant peripheral edema. I don't identify any track marking. BACK: Nontender without obvious deformity. No CVA tenderness. NEURO: Pupils are reactive. Positive gag. Currently not withdrawing to pain. Urinary Catheter: Yes Assessment to: Continue Vu insert reason: Prolonged Immobilization Vascular Central Line Catheter: No Assessment to: Continue A/P Problem List: (1) Adjustment disorder with disturbance of emotion ICD Code: F43.29 Status: Acute (2) UTI (urinary tract infection) ICD Code: N39.0 Status: Acute (3) Acute renal failure ICD Code: N17.9 Status: Acute (4) Coagulopathy ICD Code: D68.9 Status: Acute (5) Thrombocytopenia ICD Code: D69.6 Status: Acute (6) Sepsis ICD Code: A41.9 Status: Acute Assessment and Plan Neuro/Psych: Toxic metabolic encephalopathy secondary to infectious etiology Positive toxicology for amphetamines/opiates History of polysubstance abuse Patient is currently off all sedation Goal of RASS -[address] on admission revealed no acute intracranial findings Toxicology was positive for amphetamines and opiates. 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 Currently on Levophed and Best-Synephrine and vasopressin. Goal to keep MAP greater than 65 Bedside echocardiogram reveals large tricuspid valvular vegetation. 1.0 x [address] surgery but not candidate for valve replacement due to underlying illness/active drug use Obtain records from [facility] from previous surgery Troponin negative. Trending lactates. Currently 15 Resp: Acute respiratory failure History of tobaccoism [facility] 14/400/ Ventilator bundle Bronchodilator therapy every 4 hours and as needed Chest x-ray revealed possible left pleural effusion versus atelectasis. No spontaneous breathing trials until more stable. GI: History of hepatitis C Elevated total bilirubin Elevated AST Hypoalbuminemia Patient is written for Nepro goal 40 cc an hour Protonix for GI prophylaxis Colace/Senokot for bowel regimen H with ongoing shock with : Vu place for accurate I's and O's in a critically ill patient Endo: Sliding scale insulin Accu-Cheks every 6 hours to maintain euglycemia/low regimen TSH within normal limits Renal: Acute kidney injury Follow-up urine electrolytes/eosinophils CT abdomen/pelvis reveal no hydronephrosis Currently on bicarbonate drip. We'll consult nephrology. No acute indication for hemodialysis at this time. Heme: Thrombocytopenia Leukocytosis History of cervical cancer Recheck coag/fibrinogen this a.m. Transfuse 2 pack platelets overnight Hematology consulted. Likely secondary likely infection/consumption. ID: Severe sepsis Currently on vancomycin 1 dose, aztreonam 1 g every 8 and Flagyl. -Currently on Rocephin, gentamicin and rifampin in #2 per ID Pertinent cultures 09/28 - blood cultures 2 MRSA 09/27 - blood cultures 2 -Aureus 09/27 - urine - pending Noted penicillin allergy. Infectious disease consulted with recommendations of MSK: PT evaluate and treat/range of motion FEN: Hyponatremia Hyperphosphatemia Hyper-magnesium Replace electrolytes as clinically indicated Recheck BMP this am with magnesium phosphorus Access - Utilize right femoral TLC. Remove once platelets adequate corrected. Prophylaxis - GI - Protonix - DVT - holding pharmacological prophylaxis in light of severe thrombocytopenia Critical Care: The total critical care time was 35 minutes. Time to perform other separately billable procedures was not included in the critical care time. Discussed with mother Nazia. Family bedside. Wishes DNR status. Palliative care is involved. Awaiting for father to be released from custodial to visit daughter prior to withdrawal of care. Problem Qualifiers (1) Acute renal failure: Qualified Code: N17.9 - Acute renal failure, unspecified acute renal failure type (2) Sepsis: Qualified Code: A41.9 - Sepsis, due to unspecified organism Erwin Chandler MD Sep 29, 2016 10:47 - Monitor closely for bowel infarction from methamphetamine toxicity Sepsis - However hyperthermia could be also due to above - Hypotension resolved with IV fluid boluses - Broad-spectrum antibiotics - Follow-up cultures - ID consult Polysubstance abuse - Monitor for withdrawal - Benzodiazepines infusion Thrombocytopenia - Possible DIC - Monitor for signs of bleeding - Hematology consult DVT GI prophylaxis - Teds SCDs - No pharmacological prophylaxis due to severe thrombocytopenia - IV Pepcid Critical Care: The total critical care time was 35 minutes. Time to perform other separately billable procedures was not included in the critical care time. Problem Qualifiers (1) Acute renal failure: Qualified Code: N17.9 - Acute renal failure, unspecified acute renal failure type (2) Sepsis: Qualified Code: A41.9 - Sepsis, due to unspecified organism Erwin Chandler MD Sep 29, 2016 10:47
[2016-09-29] MEDS ORDERED: INSULIN HUMAN REGULAR 1,000 UNITS/10 ML VIAL IV PUSH ONE ×2 (11:00→15:00)
[2016-09-29] MEDS: NOREPINEPHRINE-DEXTROSE DRIP 250 ML IV SCH ×3 (11:20→15:18)
--- NOTE | 2016-09-29 11:25 | HHI.NPPN ---
Subjective History of Present Illness 31-year-old female with past medical history of intravenous drug abuse, history of endocarditis in the past, with valvular surgery done in the past. She was brought to the hospital last night because of altered mental status. I was called due to elevated BUN and Creatinine. Additional Remarks Patient is on the vent., now on max. pressors and has low BP. Objective Data Data 09/28/16 09/29/16 19:00 07:00 Intake Total 2098 ml 6183 ml Output Total 125 ml 120 ml Balance 1973 ml 6063 ml Intake Oral 0 ml 0 ml IV Total 2028 ml 5848 ml Tube Feeding 70 ml 335 ml Output Urine Total 125 ml 120 ml # Bowel Movements 0 0 Vital Signs Date Time Temp Pulse Resp B/P Pulse Ox O2 Delivery O2 Flow Rate FiO2 09/29/16 09:16 100 80 09/29/16 07:00 61/38 09/29/16 06:00 101 09/29/16 05:00 78/52 09/29/16 04:00 110 09/29/16 04:00 102.0 110 14 129/64 100 09/29/16 04:00 100 09/29/16 03:29 100 100 09/29/16 02:00 105 09/29/16 02:00 69/34 09/29/16 00:00 102.9 113 16 77/51 100 09/29/16 00:00 40 09/29/16 00:00 113 09/28/16 23:06 100 40 09/28/16 22:00 127 09/28/16 20:41 99 40 09/28/16 20:00 40 09/28/16 20:00 125 09/28/16 20:00 100.9 129 16 89/51 99 09/28/16 18:52 102.1 09/28/16 18:00 103.0 09/28/16 18:00 125 09/28/16 16:42 100 40 09/28/16 16:00 40 09/28/16 16:00 140 09/28/16 16:00 140 14 109/67 99 09/28/16 14:00 139 09/28/16 14:00 98.8 09/28/16 13:44 102.1 139 15 98/57 95 09/28/16 13:27 102.4 135 15 97/71 95 09/28/16 13:22 102.4 09/28/16 12:14 96 40 09/28/16 12:00 135 09/28/16 12:00 100.9 135 14 95/59 100 09/28/16 12:00 40 -: 09/29/16 0435 09/29/16 0435 Physical Exam General Appearance Remarks Intubated and sedated. Eyes Eye Exam: Pupils Equal Throat Throat Exam: Oral Mucosa [place] & Moist Pulmonary Resp Exam: Breath Sounds Equal, Rhonchi, Decreased Bases, Diminished Breath Sounds Cardiology CV Exam: Regular, Normal Sinus Rhythm Gastrointestinal/Abdomen GI Exam: Soft, Non-Tender, Distended Extremeties Extremities Exam: Trace Edema (Bilateral leg and arms are motteled and has ecchymosis.) Neurologic Neuro Exam: Sedated Assessment/Plan Assessment Summary: ROZINA/Acute Renal Failure, Hypotension Electrolyte Assessment: Hyperkalemia Problem List: (1) Coagulopathy (2) Thrombocytopenia (3) Sepsis (4) UTI (urinary tract infection) (5) Adjustment disorder with disturbance of emotion (6) Sepsis (7) Shock (8) Hyperkalemia (9) Acute renal failure Plan Patient now on max. pressors and BP is still low. Now she is DNR. Mother and family at bed side. Urine out put is minimal. D/W the mother, she want to withdraw the treatment once patient's brother and father can see her. For Hyperkalemia, she was given treatment. No Dialysis as per mother. Prognosis poor, I will sign off from Nephrology. Problem Qualifiers (1) Sepsis: Qualified Code: A41.9 - Sepsis, due to unspecified organism (2) Acute renal failure: Qualified Code: N17.9 - Acute renal failure, unspecified acute renal failure type Arley Nash MD Sep 29, 2016 11:25
--- NOTE | 2016-09-29 11:29 | PD.CONS ---
Consult Service Palliative Care . Consult Requested By Dr. Berrios . Primary Care Physician No Primary Care Physician . Reason for Consultation a. To assist with evaluation and management of symptoms including: dyspnea, pain. b. To assist medical decision maker(s) with: better understanding of current medical conditions; weighing benefits/burdens of medical treatment options; making medical treatment decisions. . HPI History of Present Illness Ms. 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 Patient presented to [facility] emergency department on 09/27/16 with altered mental status. Family reported patient became combative at home, was lethargic and route to emergency room. She was given Narcan by EMS, became combative again. Initial evaluation revealed: * VS: temp 98.3, pulse 102, respiration 32, BP 101/55, oxygen saturation 98% on 3 L nasal cannula * WBC 12.7, hemoglobin 12.1, hematocrit 36.5, platelet count 11, neutrophils 80% * sodium 128, potassium 4.0, chloride 95, carbon dioxide 14, BUN 73, creatinine 3.95, GFR 13, glucose 129, calcium 7.9 * total bilirubin 3.0, AST 50, ALT 22, alkaline phosphatase 266 * total creatine kinase 99, troponin less than 0.02 * total protein 5.5, albumin 1.9 * TSH 2.470 * toxicology screen - positive opiates and amphetamines. Alcohol negative. * urinalysis positive for leukocyte esterase, WBC, bacteria, mucus, culture indicated. * Lactic acid 6.6 * chest x-ray no acute cardiopulmonary disease * CT head normal * CT abdomen pelvis small areas of lower lobe consolidation, possible atelectasis, solid organs of the abdomen are unremarkable. Some free fluid in the pelvis. * Echocardiogram revealed ejection fraction 45 50%, large 1 x 4 cm mobile density attached the medial portion of the replaced tricuspid valve consistent with endocarditis. Patient was intubated in the emergency department for airway protection. She was started on Bicarb drip, Levaquin, vancomycin and Azactam. Patient was admitted to ICU on mechanical ventilation for endocarditis, DIC, sepsis. Since admission the patient's renal function continued to worsen. Dr. Nash, nephrology was consulted for elevated BUN and creatinine likely secondary to acute tubular necrosis or interstitial nephritis, continued medical management was recommended. Infectious disease, Dr. Madden was consulted for endocarditis and sepsis recommendations. Antibiotic recommendations were made. Notes indicate overall poor prognosis given recurrent endocarditis and multiorgan failure. Keeper Helper, Dr. Chopra was consulted for evaluation of thrombocytopenia. Recommendations for transfusion of platelets if less than 15 or evidence of bleeding. Again notes indicate patient is critically ill and will not likely survive this hospitalization. Dr. Ida Cevallos, cardiovascular surgery was consulted for recommendations related to endocarditis. Patient is not a candidate for repeat or recurrent cardiovascular surgery given critically ill state and multi-system organ failure. Palliative care is consulted to assist family with further clarification of treatment goals, symptom management and support. Discussed with Dr. Chandler. During my visit to the patient's blood pressure is 35/13, on maximal pressor support, patient is imminently dying. Respirations agonal over mechanical ventilation. Patient with severe mottling of all 4 extremities, abdomen and centrally on patient's nose. Upon seeing the patient, multiple family members including patient's mother, grandmother, cousins and friends are at the bedside. Family seems to have a good understanding of the patient's current clinical status and that she is not going to survive this hospitalization. Family is hopeful that her father will be able to visit from local correction prior to her . Mother indicates that she does not want cardiac compressions, shock or ACLS. She desires comfort and peace for her daughter. At this time we will continue current care, no further escalation of care, NO CODE. Family may consider withdrawal of life support after patient's father is able to visit from correction. Family understands that the patient may prior to his arrival. Discussed children's grief services, information on how to speak with children is provided. Patient has 3 young children 10, 8 in 3 who has been living with the patient's grandmother for the past 10 years. Family is appropriately grieving. Fashion Designer has been providing additional support. Palliative care number provided and will be available as needed throughout the day. Function/Cognitive Trajectory Patient has been malnourished and declining prior to hospitalization. . Review of Systems ROS Limitations: Intubated, Unresponsive Constitutional: COMPLAINS OF: Fatigue, Weight loss, Change in appetite ( decreased) Respiratory: COMPLAINS OF: Shortness of breath Hematologic/Lymphatics: COMPLAINS OF: Bruising Psychiatric: COMPLAINS OF: Anxiety, Depression Other ROS: ROS per EMR reviewing family report, patient and responsive on mechanical ventilation. Past Family Social History Coded Allergies: Codeine (Verified Allergy, Severe, 09/27/16) patient denies Iodine (Verified Allergy, Severe, hives, 09/27/16) Penicillin (Verified Allergy, Severe, hives, 09/27/16) "throat swollen" *MDRO Multi-Drug Resistant Organism (Verified Adverse Reaction, Unknown, ) MRSA PCR Screen POSITIVE - 09/28/2016 MRSA (blood) - 09/27/16 Past Medical History Depression anxiety IV drug use prior endocarditis status post valve replacements x 2 cervical cancer ? Hepatitis C asthma . Past Surgical History section x 3 tubal ligation mitral valve replacement tricuspid valve replacement . Reported Medications No reported medications prior to hospitalization. . Current Medications Medications (Trade) Dose Ordered Sig/Daniel Route Start Time Stop Time Status Last Admin (NS Flush) 2 ml UNSCH PRN IV FLUSH 09/28/16 01:45 (NS Flush) 2 ml BID IV FLUSH 09/28/16 09:00 09/28/16 21:30 Hydrocortisone Sodium Succinate 50 mg 50 mg Q6H IV 09/28/16 02:00 09/29/16 08:35 (Vancomycin Consult Pharmacy) 0 ml @ 0 mls/hr UNSCH OTHER 09/28/16 01:45 Terbutaline Sulfate 1 mg 1 mg UNSCH PRN SQ 09/28/16 01:45 (Pitressin Inj/ D5W 100 ml Inj) 100 ml @ 1.5 mls/hr Q24H IV 09/28/16 01:45 09/29/16 03:00 (Morphine Inj) 2 mg Q2H PRN IV 09/28/16 02:00 (Versed Inj) 2 mg Q1H PRN IV 09/28/16 02:00 09/28/16 21:32 Miscellaneous Information 1 Q361D XX 09/28/16 02:00 (Chlorhexidine 2% Cloth) 3 pack Taper DAILY@04 TOP 09/28/16 04:00 09/24/17 03:59 09/29/16 04:00 Chlorhexidine Gluconate 3 pack 3 pack UNSCH PRN TOP 09/28/16 02:00 Midazolam HCl 100 ml @ 0 mls/hr TITRATE IV 09/28/16 02:00 09/28/16 11:59 (fentaNYL DRIP) 250 ml @ 0 mls/hr TITRATE IV 09/28/16 02:00 09/28/16 21:34 (Tylenol) 650 mg Q4H PRN PO 09/28/16 02:00 09/29/16 08:34 (Protonix Inj) 40 mg Q24H IV PUSH 09/28/16 07:00 09/29/16 08:34 (Colace Liq) 100 mg Q12HR PO 09/28/16 09:00 09/28/16 21:28 (Senna Liq) 8.8 mg DAILY PO 09/28/16 09:00 09/28/16 08:05 (Peridex 0.12% Liq) 15 ml BID@08,20 MT 09/28/16 08:00 09/29/16 08:00 (D50w (Vial) Inj) 25 ml UNSCH PRN IV PUSH 09/28/16 08:00 (Glucagon Inj) 1 mg UNSCH PRN OTHER 09/28/16 08:00 (NovoLIN R SUPPLEMENTAL SCALE) 1 Q6HR SQ 09/28/16 12:00 Terbutaline Sulfate 1 mg 1 mg UNSCH PRN SQ 09/28/16 10:45 Phenylephrine HCl 160 mg/Dextrose 500 ml @ 0 mls/hr TITRATE IV 09/28/16 11:00 09/29/16 07:04 Ceftriaxone Sodium 2000 mg/ Sodium Chloride 100 ml @ 200 mls/hr Q12H IV 09/29/16 00:15 09/29/16 01:10 Pharmacy Profile Note 0 ml @ 0 mls/hr UNSCH OTHER 09/29/16 00:15 Rifampin 300 mg/ Sodium Chloride 100 ml @ 100 mls/hr Q12H IV 09/29/16 01:00 09/29/16 01:49 Norepinephrine Bitartrate 250 ml @ 0 mls/hr TITRATE IV 09/29/16 02:45 09/29/16 10:19 (Sodium Bicarbonate 8.4% Inj/D5W 1000 ml Inj) 1,150 ml @ 100 mls/hr [id number] IV 09/29/16 04:00 09/29/16 03:52 Family History Family history of drug abuse. . Substance Use Tobacco: smokes 3/4 PPD Alcohol: none known Prescription med abuse: Dilaudid use Illicits: IV drug use, marijuana, methamphetamines . Psychosocial History Single. 3 children ages 10, 8 and 3. Children have lived with the patient's grandmother for the past 10 years. . Spiritual/Cultural Factors Jewish mauro. 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 . Living Will: Never completed Health Care Surrogate: Never completed Durable Power of Fondant Cooker: Never completed Health Care Surrogate(s): Patient incapacitated, will not regain capacity. Single. Minor children. In the absence of written advance directives, according to [place] statutes, health care proxy decision-making falls to a parent. Patient's father is in correction, mother is serving as legal health care proxy decision maker. . Today's verbally stated goals: Patient incapacitated, will not regain capacity. Patient is imminently dying. Family/friends goals: Mother desires comfort focused care with continued management until the patient' s father is able to visit from correction. She may consider withdrawal of life support on his arrival, if patient survives. Mother understands patient is actively dying, may not survive the day. . Ethical and Legal Issues Patient incapacitated, will not regain capacity. Single. Minor children. In the absence of written advance directives, according to [place] statutes, health care proxy decision-making falls to a parent. Patient's father is in correction, mother is serving as legal health care proxy decision maker. . Physical Exam Vital Signs Date Time Temp Pulse Resp B/P Pulse Ox O2 Delivery O2 Flow Rate FiO2 09/29/16 09:16 100 80 09/29/16 07:00 61/38 09/29/16 06:00 101 09/29/16 05:00 78/52 09/29/16 04:00 110 09/29/16 04:00 102.0 110 14 129/64 100 09/29/16 04:00 100 09/29/16 03:29 100 100 09/29/16 02:00 105 09/29/16 02:00 69/34 09/29/16 00:00 102.9 113 16 77/51 100 09/29/16 00:00 40 09/29/16 00:00 113 09/28/16 23:06 100 40 09/28/16 22:00 127 09/28/16 20:41 99 40 09/28/16 20:00 40 09/28/16 20:00 125 09/28/16 20:00 100.9 129 16 89/51 99 09/28/16 18:52 102.1 09/28/16 18:00 103.0 09/28/16 18:00 125 09/28/16 16:42 100 40 09/28/16 16:00 40 09/28/16 16:00 140 09/28/16 16:00 140 14 109/67 99 09/28/16 14:00 139 09/28/16 14:00 98.8 09/28/16 13:44 102.1 139 15 98/57 95 09/28/16 13:27 102.4 135 15 97/71 95 09/28/16 13:22 102.4 09/28/16 12:14 96 40 09/28/16 12:00 135 09/28/16 12:00 100.9 135 14 95/59 100 09/28/16 12:00 40 09/28/16 09/29/16 19:00 07:00 Intake Total 2098 ml 6183 ml Output Total 125 ml 120 ml Balance 1973 ml 6063 ml Intake Oral 0 ml 0 ml IV Total 2028 ml 5848 ml Tube Feeding 70 ml 335 ml Output Urine Total 125 ml 120 ml # Bowel Movements 0 0 Exam CONSTITUTIONAL/GENERAL: This is critically ill patient with agonal breathing on mechanical ventilation. TUBES/LINES/DRAINS: ETT, OG, PIV, Vu. SKIN: severe mottling all 4 extremities, abdomen and nasal area. Extremities cool to touch, weeping edema and oozing blood from right hand. HEAD: Atraumatic. Normocephalic. EYES: eyes closed. ENT: unable to adequately assess hearing given current condition. Difficult to visualize throat secondary to tubes. NECK: Trachea midline. CARDIOVASCULAR: tachycardic. RESPIRATORY/CHEST: bilateral course breath sounds, diminished lung sounds bilaterally, agonal breathing on mechanical vent. GASTROINTESTINAL: Abdomen soft, distended. Bowel sounds hypoactive. GENITOURINARY: Without palpable bladder distension. Vu catheter in place. MUSCULOSKELETAL: Extremities with cyanosis and edema. Severe mottling all 4 extremities. NEUROLOGICAL: unresponsive. PSYCHIATRIC: unresponsive. . Diagnostic Tests Laboratory Laboratory Tests Test 09/27/16 09/27/16 09/27/16 09/27/16 22:25 22:30 22:35 22:39 Urine Opiates Screen POS (NEG) Urine Barbiturates Screen NEG (NEG) Urine Amphetamines Screen POS (NEG) Urine Benzodiazepines Screen NEG (NEG) Urine Cocaine Screen NEG (NEG) Urine Cannabinoids Screen NEG (NEG) Urine Color DARK-BROWN (YELLW/STRAW) Urine Turbidity CLOUDY (CLEAR) Urine pH 5.0 (5.0-8.5) Urine Specific Bantam 1.024 (1.002-1.035) Urine Protein 100 mg/dL (NEG-TRACE) Urine Glucose (UA) NEG mg/dL (NEG) Urine Ketones NEG mg/dL (NEG) Urine Occult Blood NEG (NEG) Urine Nitrite NEG (NEG) Urine Bilirubin NEG (NEG) Urine Urobilinogen 8.0 MG/DL (LESS THAN 2.0) Urine Leukocyte Esterase SMALL (NEG) Urine RBC 3 /hpf (0-3) Urine WBC 10 /hpf (0-5) Urine Squamous Epithelial 1 /hpf (0-5) Cells Urine Amorphous Sediment RARE Urine Bacteria RARE /hpf (NONE) Urine Hyaline Casts 32 /lpf (RARE) Urine Mucus FEW /lpf (OCC) Microscopic Urinalysis Comment CULTURE INDICATED Sodium Level 128 MEQ/L (136-145) Potassium Level 4.0 MEQ/L (3.5-5.1) Chloride Level 95 MEQ/L (98-107) Carbon Dioxide Level 14.0 MEQ/L (21.0-32.0) Anion Gap 19 MEQ/L (5-15) Blood Urea Nitrogen 73 MG/DL (7-18) Creatinine 3.95 MG/DL (0.50-1.00) Estimat Glomerular Filtration 13 ML/MIN (>89) Rate Random Glucose 129 MG/DL (74-106) Calcium Level 7.9 MG/DL (8.5-10.1) Total Bilirubin 3.0 MG/DL (0.2-1.0) Aspartate Amino Transf 50 U/L (15-37) (AST/SGOT) Alanine Aminotransferase 22 U/L (10-53) (ALT/SGPT) Alkaline Phosphatase 266 U/L (45-117) Total Creatine Kinase 99 U/L (26-192) Troponin I LESS THAN 0.02 NG/ML (0.02-0.05) Total Protein 5.5 GM/DL (6.4-8.2) Albumin 1.9 GM/DL (3.4-5.0) Thyroid Stimulating Hormone 2.470 uIU/ML 3rd Gen (0.358-3.740) Salicylates Level 2.9 MG/DL (2.8-20.0) Acetaminophen Level 5.1 MCG/ML (10.0-30.0) Ethyl Alcohol Level LESS THAN 3 MG/DL (0-5) White Blood Count 12.7 TH/MM3 (4.0-11.0) Red Blood Count 4.25 MIL/MM3 (4.00-5.30) Hemoglobin 12.1 GM/DL (11.6-15.3) Hematocrit 36.5 % (35.0-46.0) Mean Corpuscular Volume 85.8 FL (80.0-100.0) Mean Corpuscular Hemoglobin 28.6 PG (27.0-34.0) Mean Corpuscular Hemoglobin 33.3 % Concent (32.0-36.0) Red Cell Distribution Width 14.8 % (11.6-17.2) Platelet Count 11 TH/MM3 (150-450) Mean Platelet Volume 12.8 FL (7.0-11.0) Neutrophils (%) (Auto) 80.0 % (16.0-70.0) Lymphocytes (%) (Auto) 11.5 % (9.0-44.0) Monocytes (%) (Auto) 5.9 % (0.0-8.0) Eosinophils (%) (Auto) 2.4 % (0.0-4.0) Basophils (%) (Auto) 0.2 % (0.0-2.0) Neutrophils # (Auto) 10.1 TH/MM3 (1.8-7.7) Lymphocytes # (Auto) 1.5 TH/MM3 (1.0-4.8) Monocytes # (Auto) 0.7 TH/MM3 (0-0.9) Eosinophils # (Auto) 0.3 TH/MM3 (0-0.4) Basophils # (Auto) 0.0 TH/MM3 (0-0.2) CBC Comment AUTO DIFF Differential Total Cells 100 Counted Neutrophils % (Manual) 60 % (16-70) Band Neutrophils % 28 % (0-6) Lymphocytes % 6 % (9-44) Monocytes % 6 % (0-8) Neutrophils # (Manual) 11.2 TH/MM3 (1.8-7.7) Differential Comment FINAL DIFF MANUAL Toxic Granulation 1+ (NORMAL) Toxic Vacuolation PRESENT (NONE SEEN) Platelet Estimate RARE (NORMAL) Platelet Morphology Comment NORMAL (NORMAL) Acanthocytes OCC (NORMAL) Prothrombin Time 14.5 SEC (9.8-11.6) Prothromb Time International 1.3 RATIO Ratio Activated Partial 40.1 SEC Thromboplast Time (24.3-30.1) Blood Gas Puncture Site RT FEMORAL Blood Gas Patient Temperature 98.6 Blood Gas HCO3 11 mmol/L (22-26) Blood Gas Base Excess -13.9 mmol/L (-2-2) Blood Gas Oxygen Saturation 93 % (90-100) Arterial Blood pH 7.36 (7.380-7.420) Arterial Blood Partial 20 mmHg (38-42) Pressure CO2 Arterial Blood Partial 75 mmHG Pressure O2 (61-120) Arterial Blood Oxygen Content 15.1 Vol % (12.0-20.0) Arterial Blood 1.4 % (0-4) Carboxyhemoglobin Arterial Blood Methemoglobin 0.2 % (0-2) Blood Gas Hemoglobin 11.5 G/DL (12.0-16.0) Oxygen Delivery Device NASAL CANNULA Blood Gas Liter Flow 2 L/M Test 09/27/16 09/27/16 09/28/16 09/28/16 22:40 23:00 00:30 01:29 Lactic Acid Level 6.6 mmol/L (0.4-2.0) Blood Type A NEGATIVE Antibody Screen NEGATIVE Blood Bank Comment Ammonia 13 MCMOL/L (11-32) Blood Gas Puncture Site RT BRACHIAL Blood Gas Patient Temperature 98.6 Blood Gas HCO3 13 mmol/L (22-26) Blood Gas Base Excess -14.7 mmol/L (-2-2) Blood Gas Oxygen Saturation 98 % (90-100) Arterial Blood pH 7.14 (7.380-7.420) Arterial Blood Partial 39 mmHg (38-42) Pressure CO2 Arterial Blood Partial 359 mmHG Pressure O2 (61-120) Arterial Blood Oxygen Content 17.5 Vol % (12.0-20.0) Arterial Blood 0.4 % (0-4) Carboxyhemoglobin Arterial Blood Methemoglobin 0.5 % (0-2) Blood Gas Hemoglobin 12.0 G/DL (12.0-16.0) Oxygen Delivery Device VENTILATOR Blood Gas Ventilator Setting AC/14/400/PEEP5 Blood Gas Inspired Oxygen 100 % Test 09/28/16 09/28/16 09/28/16 09/28/16 01:58 02:00 04:00 04:44 Blood Bank Comment Lactic Acid Level 7.6 mmol/L (0.4-2.0) Nasal Screen MRSA (PCR) POSITIVE (NEGATIVE) Blood Gas Puncture Site RT RADIAL Blood Gas Patient Temperature 98.6 Blood Gas HCO3 18 mmol/L (22-26) Blood Gas Base Excess -5.7 mmol/L (-2-2) Blood Gas Oxygen Saturation 97 % (90-100) Arterial Blood pH 7.39 (7.380-7.420) Arterial Blood Partial 31 mmHg (38-42) Pressure CO2 Arterial Blood Partial 157 mmHg Pressure O2 (61-120) Arterial Blood Oxygen Content 15.9 Vol % (12.0-20.0) Arterial Blood 1.4 % (0-4) Carboxyhemoglobin Arterial Blood Methemoglobin 1.0 % (0-2) Blood Gas Hemoglobin 11.5 G/DL (12.0-16.0) Oxygen Delivery Device VENTILATOR Blood Gas Inspired Oxygen 50 % Test 09/28/16 09/28/16 09/28/16 09/28/16 05:04 08:12 08:15 10:56 Lactic Acid Level 6.4 mmol/L (0.4-2.0) Prothrombin Time 14.4 SEC (9.8-11.6) Prothromb Time International 1.3 RATIO Ratio Activated Partial 35.5 SEC Thromboplast Time (24.3-30.1) Fibrinogen 171 mg/dL (181-393) Sodium Level 136 MEQ/L (136-145) Potassium Level 4.0 MEQ/L (3.5-5.1) Chloride Level 97 MEQ/L (98-107) Carbon Dioxide Level 24.1 MEQ/L (21.0-32.0) Anion Gap 15 MEQ/L (5-15) Blood Urea Nitrogen 77 MG/DL (7-18) Creatinine 3.24 MG/DL (0.50-1.00) Estimat Glomerular Filtration 17 ML/MIN (>89) Rate Random Glucose 129 MG/DL (74-106) Calcium Level 7.0 MG/DL (8.5-10.1) Protein Corrected Calcium 8.0 MG/DL (8.5-10.1) Phosphorus Level 4.8 MG/DL (2.5-4.9) Magnesium Level 2.1 MG/DL (1.5-2.5) Ammonia 31 MCMOL/L (11-32) Lactate Dehydrogenase 608 U/L (84-246) Total Creatine Kinase 205 U/L (26-192) Creatine Kinase MB 10.4 NG/ML (0.5-3.6) Creatine Kinase MB % 5.1 % (0.0-4.0) Troponin I LESS THAN 0.02 NG/ML (0.02-0.05) C-Reactive Protein 21.00 MG/DL (0.00-0.30) Total Protein 5.2 GM/DL (6.4-8.2) Procalcitonin 28.29 ng/mL (0.00-0.50) Random Vancomycin Level 17.4 COMMENT Urine Eosinophils NONE SEEN /HPF (NONE SEEN) Urine Random Creatinine 204.7 MG/DL Urine Random Sodium 14 MEQ/L White Blood Count 20.3 TH/MM3 (4.0-11.0) Red Blood Count 4.18 MIL/MM3 (4.00-5.30) Hemoglobin 11.8 GM/DL (11.6-15.3) Hematocrit 35.3 % (35.0-46.0) Mean Corpuscular Volume 84.5 FL (80.0-100.0) Mean Corpuscular Hemoglobin 28.2 PG (27.0-34.0) Mean Corpuscular Hemoglobin 33.3 % Concent (32.0-36.0) Red Cell Distribution Width 15.0 % (11.6-17.2) Platelet Count 17 TH/MM3 (150-450) Mean Platelet Volume 10.8 FL (7.0-11.0) Blood Smear Pathologist Review Haptoglobin 22 MG/DL (30-200) Test 09/28/16 09/28/16 09/29/16 09/29/16 11:40 17:10 02:30 04:35 Lactic Acid Level 3.8 mmol/L 3.6 mmol/L 15.2 mmol/L (0.4-2.0) (0.4-2.0) (0.4-2.0) White Blood Count 21.4 TH/MM3 25.2 TH/MM3 (4.0-11.0) (4.0-11.0) Red Blood Count 4.08 MIL/MM3 3.00 MIL/MM3 (4.00-5.30) (4.00-5.30) Hemoglobin 11.3 GM/DL 8.3 GM/DL (11.6-15.3) (11.6-15.3) Hematocrit 34.8 % 27.1 % (35.0-46.0) (35.0-46.0) Mean Corpuscular Volume 85.1 FL 90.3 FL (80.0-100.0) (80.0-100.0) Mean Corpuscular Hemoglobin 27.7 PG 27.8 PG (27.0-34.0) (27.0-34.0) Mean Corpuscular Hemoglobin 32.6 % 30.7 % Concent (32.0-36.0) (32.0-36.0) Red Cell Distribution Width 15.4 % 16.2 % (11.6-17.2) (11.6-17.2) Platelet Count 32 TH/MM3 13 TH/MM3 (150-450) (150-450) Mean Platelet Volume 11.4 FL 10.1 FL (7.0-11.0) (7.0-11.0) Sodium Level 137 MEQ/L 143 MEQ/L (136-145) (136-145) Potassium Level 5.1 MEQ/L 6.6 MEQ/L (3.5-5.1) (3.5-5.1) Chloride Level 102 MEQ/L 102 MEQ/L (98-107) (98-107) Carbon Dioxide Level 22.8 MEQ/L 14.5 MEQ/L (21.0-32.0) (21.0-32.0) Anion Gap 12 MEQ/L (5-15) 27 MEQ/L (5-15) Blood Urea Nitrogen 87 MG/DL (7-18) 95 MG/DL (7-18) Creatinine 3.46 MG/DL 4.66 MG/DL (0.50-1.00) (0.50-1.00) Estimat Glomerular Filtration 16 ML/MIN (>89) 11 ML/MIN (>89) Rate Random Glucose 114 MG/DL 77 MG/DL (74-106) (74-106) Calcium Level 6.2 MG/DL 5.3 MG/DL (8.5-10.1) (8.5-10.1) Protein Corrected Calcium 7.3 MG/DL 7.0 MG/DL (8.5-10.1) (8.5-10.1) Phosphorus Level 5.2 MG/DL 10.9 MG/DL (2.5-4.9) (2.5-4.9) Magnesium Level 2.3 MG/DL 2.9 MG/DL (1.5-2.5) (1.5-2.5) Lactate Dehydrogenase 982 U/L (84-246) Total Protein 4.8 GM/DL 3.3 GM/DL (6.4-8.2) (6.4-8.2) Complement C3 49 MG/DL (90-180) Complement C4 6 MG/DL (10-40) Blood Gas Puncture Site RT BRACHIAL Blood Gas Patient Temperature 98.6 Blood Gas HCO3 8 mmol/L (22-26) Blood Gas Base Excess -21.3 mmol/L (-2-2) Blood Gas Oxygen Saturation 76 % (90-100) Arterial Blood pH 6.95 (7.380-7.420) Arterial Blood Partial 39 mmHg (38-42) Pressure CO2 Arterial Blood Partial 66 mmHg Pressure O2 (61-120) Arterial Blood Oxygen Content 10.9 Vol % (12.0-20.0) Arterial Blood 0.2 % (0-4) Carboxyhemoglobin Arterial Blood Methemoglobin 1.2 % (0-2) Blood Gas Hemoglobin 10.1 G/DL (12.0-16.0) Oxygen Delivery Device VENTILATOR Blood Gas Ventilator Setting PRVC/AC Blood Gas Inspired Oxygen 40 % Neutrophils (%) (Auto) 73.0 % (16.0-70.0) Lymphocytes (%) (Auto) 14.9 % (9.0-44.0) Monocytes (%) (Auto) 10.8 % (0.0-8.0) Eosinophils (%) (Auto) 0.6 % (0.0-4.0) Basophils (%) (Auto) 0.7 % (0.0-2.0) Neutrophils # (Auto) 18.3 TH/MM3 (1.8-7.7) Lymphocytes # (Auto) 3.8 TH/MM3 (1.0-4.8) Monocytes # (Auto) 2.7 TH/MM3 (0-0.9) Eosinophils # (Auto) 0.2 TH/MM3 (0-0.4) Basophils # (Auto) 0.2 TH/MM3 (0-0.2) CBC Comment AUTO DIFF Differential Total Cells 100 Counted Neutrophils % (Manual) 65 % (16-70) Band Neutrophils % 12 % (0-6) Lymphocytes % 13 % (9-44) Monocytes % 7 % (0-8) Neutrophils # (Manual) 20.2 TH/MM3 (1.8-7.7) Myelocytes 3 % (0-0) Nucleated Red Blood Cells 2 /100 WBC (0-0) Differential Comment FINAL DIFF MANUAL Toxic Granulation 1+ (NORMAL) Toxic Vacuolation PRESENT (NONE SEEN) Platelet Estimate LOW (NORMAL) Platelet Morphology Comment NORMAL (NORMAL) Ovalocytes 1+ (NORMAL) Total Bilirubin 2.8 MG/DL (0.2-1.0) Aspartate Amino Transf 5078 U/L (AST/SGOT) (15-37) Alanine Aminotransferase 899 U/L (10-53) (ALT/SGPT) Alkaline Phosphatase 252 U/L (45-117) Albumin 1.1 GM/DL (3.4-5.0) Result Diagram: 09/29/16 0435 09/29/16 0435 Microbiology Microbiology Date/Time Procedure Status Source Growth 09/27/16 22:25 Urine Culture - Final Complete Urine Clean Catch NO GROWTH IN 48 HOURS. 09/27/16 22:35 Aerobic Blood Culture - Preliminary Resulted Blood Peripheral S. Aureus Mrsa 09/27/16 22:35 Anaerobic Blood Culture - Preliminary Resulted Gram Positive Cocci 09/27/16 22:40 Aerobic Blood Culture - Preliminary Resulted Blood Peripheral Gram Positive Cocci 09/27/16 22:40 Anaerobic Blood Culture - Preliminary Resulted Gram Positive Cocci 09/28/16 05:02 Aerobic Blood Culture - Preliminary Resulted Blood Peripheral S. Aureus Mrsa Staph Sp Coagulase Negative 09/28/16 05:02 Anaerobic Blood Culture Resulted Blood Peripheral Pending 09/28/16 05:04 Aerobic Blood Culture - Preliminary Resulted Blood Peripheral S. Aureus Mrsa Staph Sp Coagulase Negative 09/28/16 05:04 Anaerobic Blood Culture Resulted Blood Peripheral Pending 09/28/16 08:15 Legionella Antigen - Final Complete Urine Catheterized Urine PRESUMPTIVE NEGATIVE FOR LEGIONELLA P... 09/28/16 08:15 Streptococcus pneumoniae Antigen (M - Final Complete Urine Catheterized Urine PRESUMPTIVE NEGATIVE FOR STREPTOCOCCU... 09/28/16 08:17 Influenza Types A,B Antigen (RICO) Ordered Nasal Aspirate Pending 09/28/16 08:19 Gram Stain - Final Resulted Sputum Endotracheal 09/28/16 08:19 Sputum Culture Resulted Sputum Endotracheal Pending 09/28/16 09:08 Influenza Types A,B Antigen (RICO) - Final Complete .Nasal Aspirate NEGATIVE FOR FLU A AND B ANTIGEN.... Imaging Last Impressions Chest X-Ray 09/28/16 0101 Signed Impressions: Service Date/Time: Wednesday, September 28, 2016 01:18 - CONCLUSION: Endotracheal tube and nasogastric are in good position Erick Wright MD Head CT [id number]/27/[id number] Signed Impressions: Service Date/Time: Wednesday, September 28, 2016 02:26 - CONCLUSION: Normal examination. Erick Wright MD Abdomen/Pelvis CT 09/27/162356 Signed Impressions: Service Date/Time: Wednesday, September 28, 2016 02:30 - CONCLUSION: Small areas of lower lobe consolidation the lungs possible atelectasis. Solid organs of the abdomen are unremarkable without IV contrast. Some free fluid in the pelvis. Erick Wright MD . Patient/Family Conference Present at Family Conference: Met with mother, grandmother, cousins and close family friends. Family Conference Time (mins): 45 Family Conference Location: Bedside Issues Discussed: * Palliative care role, purpose, approach * Patient/family understanding of the current medical problems * Patient/family understanding of prognosis * Patients goals of care as best understood from advance directives and/or conversations and/or values * Likely scenarios comparing ongoing aggressive care with a transition to comfort measures only * Questions answered to the best of my ability * Palliative care contact information provided Assessment and Plan Disease Oriented Problem List: (1) Endocarditis (2) UTI (urinary tract infection) (3) Sepsis (4) Shock (5) Acute respiratory failure (6) Liver failure (7) Acute renal failure (8) Thrombocytopenia (9) Hyperkalemia (10) Coagulopathy Symptom Scale: (1) Pain 0-10 Scale: Unable to quantify (2) Dyspnea 0-10 Scale: Unable to quantify Comment: Agonal breathing on mechanical ventilation Pertinent Non-Medical Issues Psychosocial: single. Has 3 children. Supported by many family members including mother, grandmother cousins and friends. Spiritual: Jewish mauro. 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 Legal: Patient incapacitated, will not regain capacity. Single. Minor children. In the absence of written advance directives, according to [place] statutes, health care proxy decision-making falls to a parent. Patient's father is in correction, mother is serving as legal health care proxy decision maker. Ethical issues impacting care: no known concerns at this time. . Important Contacts * Nazia Winston, mother/HCP: [phone] . Prognosis Patient is imminently dying, she will not survive this hospitalization. . Code Status: No Code Plan * Patient incapacitated, will not regain capacity. Single. Minor children. In the absence of written advance directives, according to [place] statutes, health care proxy decision-making falls to a parent. Patient's father is in correction, mother is serving as legal health care proxy decision maker. * NO CODE * 09/29/16 Family seems to have a good understanding of the patient's current clinical status and that she is not going to survive this hospitalization. Family is hopeful that her father will be able to visit from local correction prior to her . Mother indicates that she does not want cardiac compressions, shock or ACLS. She desires comfort and peace for her daughter. At this time we will continue current care, no further escalation of care, NO CODE. Family may consider withdrawal of life support after patient's father is able to visit from correction. Family understands that the patient may prior to his arrival. * Discussed children's grief services, information on how to speak with children is provided. Patient has 3 young children 10, 8 in 3 who has been living with the patient's grandmother for the past 10 years. Family is appropriately grieving. * Fashion Designer has been providing additional support. * SYMPTOMS: pain: potential sources include endocarditis, UTI, tubes, mechanical ventilation, bedbound status, shock. Unresponsive, off any sedation. Dyspnea: agonal respirations on mechanical vent. Patient appears to be imminently dying. Has PRN morphine, Versed and fentanyl available. No new medication recommendations at this time. Palliative care will be available to transition to comfort should family elect to withdraw life support. * Palliative care number provided and will be available as needed throughout the day. . Thank you for the opportunity to participate in the care of Ms. Dooley. JONI GOTTLIEB Sep 29, 2016 11:29
--- NOTE | 2016-09-29 13:43 | PD.ONC.PN ---
Subjective Subjective Remarks Tmax 102.6 overnight. Patient intubated, sedated, multiple family members at bedside. Objective Data Date Time Temp Pulse Resp B/P Pulse Ox O2 Delivery O2 Flow Rate FiO2 09/29/16 12:16 99 80 09/29/16 12:00 102.6 112 14 84/52 98 09/29/16 12:00 80 09/29/16 09:16 100 80 09/29/16 08:00 101.2 99 14 92/50 100 09/29/16 08:00 100 09/29/16 07:00 61/38 09/29/16 06:00 101 09/29/16 05:00 78/52 09/29/16 04:00 110 09/29/16 04:00 102.0 110 14 129/64 100 09/29/16 04:00 100 09/29/16 03:29 100 100 09/29/16 02:00 105 09/29/16 02:00 69/34 09/29/16 00:00 102.9 113 16 77/51 100 09/29/16 00:00 40 09/29/16 00:00 113 09/28/16 23:06 100 40 09/28/16 22:00 127 09/28/16 20:41 99 40 09/28/16 20:00 40 09/28/16 20:00 125 09/28/16 20:00 100.9 129 16 89/51 99 09/28/16 18:52 102.1 09/28/16 18:00 103.0 09/28/16 18:00 125 09/28/16 16:42 100 40 09/28/16 16:00 40 09/28/16 16:00 140 09/28/16 16:00 140 14 109/67 99 09/28/16 14:00 139 09/28/16 14:00 98.8 09/28/16 13:44 102.1 139 15 98/57 95 09/29/16 09/29/16 09/29/16 07:00 15:00 23:00 Intake Total 4209 ml Output Total 50 ml Balance 4159 ml Result Diagram: 09/29/16 0435 09/29/16 0435 Laboratory Results Laboratory Tests Test 09/28/16 09/28/16 09/29/16 09/29/16 17:10 18:21 02:30 04:35 White Blood Count 21.4 TH/MM3 25.2 TH/MM3 Red Blood Count 4.08 MIL/MM3 3.00 MIL/MM3 Hemoglobin 11.3 GM/DL 8.3 GM/DL Hematocrit 34.8 % 27.1 % Mean Corpuscular Volume 85.1 FL 90.3 FL Mean Corpuscular Hemoglobin 27.7 PG 27.8 PG Mean Corpuscular Hemoglobin 32.6 % 30.7 % Concent Red Cell Distribution Width 15.4 % 16.2 % Platelet Count 32 TH/MM3 13 TH/MM3 Mean Platelet Volume 11.4 FL 10.1 FL Sodium Level 137 MEQ/L 143 MEQ/L Potassium Level 5.1 MEQ/L 6.6 MEQ/L Chloride Level 102 MEQ/L 102 MEQ/L Carbon Dioxide Level 22.8 MEQ/L 14.5 MEQ/L Anion Gap 12 MEQ/L 27 MEQ/L Blood Urea Nitrogen 87 MG/DL 95 MG/DL Creatinine 3.46 MG/DL 4.66 MG/DL Estimat Glomerular Filtration 16 ML/MIN 11 ML/MIN Rate Random Glucose 114 MG/DL 77 MG/DL Lactic Acid Level 3.6 mmol/L 15.2 mmol/L Calcium Level 6.2 MG/DL 5.3 MG/DL Protein Corrected Calcium 7.3 MG/DL 7.0 MG/DL Phosphorus Level 5.2 MG/DL 10.9 MG/DL Magnesium Level 2.3 MG/DL 2.9 MG/DL Lactate Dehydrogenase 982 U/L Total Protein 4.8 GM/DL 3.3 GM/DL Complement C3 49 MG/DL Complement C4 6 MG/DL Anti-Nuclear Antibody Screen NEG Blood Gas Puncture Site RT BRACHIAL Blood Gas Patient Temperature 98.6 Blood Gas HCO3 8 mmol/L Blood Gas Base Excess -21.3 mmol/L Blood Gas Oxygen Saturation 76 % Arterial Blood pH 6.95 Arterial Blood Partial 39 mmHg Pressure CO2 Arterial Blood Partial 66 mmHg Pressure O2 Arterial Blood Oxygen Content 10.9 Vol % Arterial Blood 0.2 % Carboxyhemoglobin Arterial Blood Methemoglobin 1.2 % Blood Gas Hemoglobin 10.1 G/DL Oxygen Delivery Device VENTILATOR Blood Gas Ventilator Setting PRVC/AC Blood Gas Inspired Oxygen 40 % Neutrophils (%) (Auto) 73.0 % Lymphocytes (%) (Auto) 14.9 % Monocytes (%) (Auto) 10.8 % Eosinophils (%) (Auto) 0.6 % Basophils (%) (Auto) 0.7 % Neutrophils # (Auto) 18.3 TH/MM3 Lymphocytes # (Auto) 3.8 TH/MM3 Monocytes # (Auto) 2.7 TH/MM3 Eosinophils # (Auto) 0.2 TH/MM3 Basophils # (Auto) 0.2 TH/MM3 CBC Comment AUTO DIFF Differential Total Cells 100 Counted Neutrophils % (Manual) 65 % Band Neutrophils % 12 % Lymphocytes % 13 % Monocytes % 7 % Neutrophils # (Manual) 20.2 TH/MM3 Myelocytes 3 % Nucleated Red Blood Cells 2 /100 WBC Differential Comment FINAL DIFF MANUAL Toxic Granulation 1+ Toxic Vacuolation PRESENT Platelet Estimate LOW Platelet Morphology Comment NORMAL Ovalocytes 1+ Total Bilirubin 2.8 MG/DL Aspartate Amino Transf 5078 U/L (AST/SGOT) Alanine Aminotransferase 899 U/L (ALT/SGPT) Alkaline Phosphatase 252 U/L Albumin 1.1 GM/DL Culture Results Microbiology Date/Time Procedure Status Source Growth 09/27/16 22:25 Urine Culture - Final Complete Urine Clean Catch NO GROWTH IN 48 HOURS. 09/27/16 22:35 Aerobic Blood Culture - Preliminary Resulted Blood Peripheral S. Aureus Mrsa 09/27/16 22:35 Anaerobic Blood Culture - Final Resulted S. Aureus Mrsa 09/27/16 22:40 Aerobic Blood Culture - Final Complete Blood Peripheral S. Aureus Mrsa 09/27/16 22:40 Anaerobic Blood Culture - Final Complete S. Aureus Mrsa 09/28/16 05:02 Aerobic Blood Culture - Final Resulted Blood Peripheral S. Aureus Mrsa Staph Sp Coagulase Negative 09/28/16 05:02 Anaerobic Blood Culture - Preliminary Resulted Blood Peripheral NO GROWTH IN 1 DAY 09/28/16 05:04 Aerobic Blood Culture - Final Resulted Blood Peripheral S. Aureus Mrsa Staph Sp Coagulase Negative 09/28/16 05:04 Anaerobic Blood Culture - Preliminary Resulted Blood Peripheral NO GROWTH IN 1 DAY 09/28/16 08:15 Legionella Antigen - Final Complete Urine Catheterized Urine PRESUMPTIVE NEGATIVE FOR LEGIONELLA P... 09/28/16 08:15 Streptococcus pneumoniae Antigen (M - Final Complete Urine Catheterized Urine PRESUMPTIVE NEGATIVE FOR STREPTOCOCCU... 09/28/16 08:17 Influenza Types A,B Antigen (RICO) Ordered Nasal Aspirate Pending 09/28/16 08:19 Gram Stain - Final Resulted Sputum Endotracheal 09/28/16 08:19 Sputum Culture Resulted Sputum Endotracheal Pending 09/28/16 09:08 Influenza Types A,B Antigen (RICO) - Final Complete Nasal Aspirate NEGATIVE FOR FLU A AND B ANTIGEN.... Administered Medications Medications (Trade) Dose Ordered Sig/Daniel Route PRN Reason Start Time Stop Time Status Last Admin Dose Admin Sodium Chloride (NS Flush) 2 ml BID IV FLUSH 09/28/16 09:00 09/28/16 21:30 Hydrocortisone Sodium Succinate 50 mg 50 mg Q6H IV 09/28/16 02:00 09/29/16 08:35 Vasopressin/ Dextrose (Pitressin Inj/ D5W 100 ml Inj) 100 ml @ 1.5 mls/hr Q24H IV 09/28/16 01:45 09/29/16 03:00 Midazolam HCl (Versed Inj) 2 mg Q1H PRN IV SEDATION 09/28/16 02:00 09/28/16 21:32 Chlorhexidine Gluconate 3 pack 3 pack Taper DAILY@04 TOP 09/28/16 04:00 09/24/17 03:59 09/29/16 04:00 Midazolam HCl 100 ml @ 0 mls/hr TITRATE IV 09/28/16 02:00 09/28/16 11:59 Fentanyl Citrate (fentaNYL DRIP) 250 ml @ 0 mls/hr TITRATE IV 09/28/16 02:00 09/28/16 21:34 Acetaminophen (Tylenol) 650 mg Q4H PRN PO Temp>101F, Headache 09/28/16 02:00 09/29/16 12:45 Pantoprazole Sodium (Protonix Inj) 40 mg Q24H IV PUSH 09/28/16 07:00 09/29/16 08:34 Docusate Sodium (Colace Liq) 100 mg Q12HR PO 09/28/16 09:00 09/28/16 21:28 Sennosides (Senna Liq) 8.8 mg DAILY PO 09/28/16 09:00 09/28/16 08:05 Chlorhexidine Gluconate (Peridex 0.12% Liq) 15 ml BID@08,20 MT 09/28/16 08:00 09/29/16 08:00 Insulin Human Regular 1 1 Q6HR SQ 09/28/16 12:00 09/29/16 12:41 Ceftriaxone Sodium 2000 mg/ Sodium Chloride 100 ml @ 200 mls/hr Q12H IV 09/29/16 00:15 09/29/16 12:39 Rifampin 300 mg/ Sodium Chloride 100 ml @ 100 mls/hr Q12H IV 09/29/16 01:00 09/29/16 01:49 Sodium Bicarbonate 150 meq/Dextrose 1,150 ml @ 100 mls/hr [id number] IV 09/29/16 04:00 09/29/16 03:52 Phenylephrine HCl 160 mg/Dextrose 500 ml @ 0 mls/hr TITRATE IV 09/29/16 10:45 09/29/16 11:20 Norepinephrine Bitartrate (Levophed-Dextrose Drip) 250 ml @ 0 mls/hr TITRATE IV 09/29/16 10:45 09/29/16 11:20 Objective Remarks GENERAL: Intubated, sedated female, lying supine in bed. SKIN: Warm and dry. extremities with mottled appearance. HEAD: Normocephalic. EYES: No injection or drainage. NECK: Supple, trachea midline. CARDIOVASCULAR: +S1,S2 RESPIRATORY: anterior flor with occasional rhonchi. on mechanical ventilation GASTROINTESTINAL: Abdomen soft, non-tender, nondistended. EXTREMITIES: No cyanosis NEUROLOGICAL: sedated. Assessment/Plan Problem List: (1) Thrombocytopenia Status: Acute Plan: 09/29: patient has met with palliative care and plans to withdraw care later today after patient visited by father. --due to sepsis/disseminated intravascular coagulation --transfuse for platelet count less than 15 or for any evidence of bleeding. --transfuse for fibrinogen less than 100 Assessment 31y/o critically ill female, Hematology consulted for thrombocytopenia. Patient admitted with AMS. h/o IV drug abuse Attending Statement remains on vent. Family to withdraw life support today. has MRSA sepsis. Kasandra Ramirez Sep 29, 2016 13:43 Ivon Chopra MD Sep 29, 2016 22:47
[2016-09-29] MEDS ORDERED: HYDROmorphone HCL PF 2 MG/ML VIAL IV ONE ×2 (16:00→16:15)
[2016-09-29] MEDS ORDERED: HYOSCYAMINE 0.125 MG TAB PO/SL ONE (16:00)
[2016-09-29] MEDS ORDERED: LORazepam 2 MG/ML VIAL IV ONE ×2 (16:00→16:15)
[2016-09-29] MEDS ORDERED: LORazepam 2 MG/ML VIAL IV PRN ×2 (16:30)
[2016-09-29] MEDS ORDERED: ACETAMINOPHEN 650 MG SUPP RECTAL PRN (16:30)
[2016-09-29] MEDS ORDERED: FUROSEMIDE 20 MG/2 ML VIAL IV PRN (16:30)
[2016-09-29] MEDS ORDERED: BISACODYL 10 MG SUPP RECTAL PRN (16:30)
[2016-09-29] MEDS ORDERED: HYDROmorphone HCL PF 2 MG/ML VIAL IV PRN ×2 (16:30)
[2016-09-29] MEDS ORDERED: LORazepam 2 MG/ML VIAL IVS PRN (16:30)
--- NOTE | 2016-09-29 17:05 | HHI.DS ---
Summary Note Date of : Sep 29, 2016 Time Of : 16:43 Admission Date Sep 28, 2016 at 00:06 Admitting Diagnosis sepsis. Thrombocytopenia. Coagulopathy. Acute renal failure. Diagnosis at Time of : (1) Endocarditis ICD Code: I38 Diagnosis: Principal (2) Liver failure ICD Code: K72.90 Diagnosis: Principal (3) Acute respiratory failure ICD Code: J96.00 Diagnosis: Principal (4) Acute renal failure ICD Code: N17.9 Diagnosis: Principal (5) Coagulopathy ICD Code: D68.9 Diagnosis: Principal (6) Sepsis ICD Code: A41.9 Diagnosis: Principal (7) Hyperkalemia ICD Code: E87.5 Diagnosis: Principal Procedures Right femoral catheter Brief History 31-year-old female with history of methamphetamine abuse was brought in by EMS for altered mental status. Family member reportedly called EMS because patient was combative at home. Patient was given Ativan 2 mg IV. Patient became more lethargic on the way to the ED. She was given Narcan IV by EMS and was extremely combative subsequently. She was intubated by ER attending for an airway protection. CBC/BMP: 09/29/16 0435 09/29/16 1300 Significant Findings Laboratory Tests Test 09/27/16 09/27/16 09/27/16 09/27/16 22:25 22:30 22:35 22:39 Urine Opiates Screen POS (NEG) Urine Amphetamines Screen POS (NEG) Urine Color DARK-BROWN (YELLW/STRAW) Urine Turbidity CLOUDY (CLEAR) Urine Protein 100 mg/dL (NEG-TRACE) Urine Urobilinogen 8.0 MG/DL (LESS THAN 2.0) Urine Leukocyte Esterase SMALL (NEG) Urine WBC 10 /hpf (0-5) Urine Bacteria RARE /hpf (NONE) Urine Mucus FEW /lpf (OCC) Sodium Level 128 MEQ/L (136-145) Chloride Level 95 MEQ/L (98-107) Carbon Dioxide Level 14.0 MEQ/L (21.0-32.0) Anion Gap 19 MEQ/L (5-15) Blood Urea Nitrogen 73 MG/DL (7-18) Creatinine 3.95 MG/DL (0.50-1.00) Estimat Glomerular Filtration 13 ML/MIN (>89) Rate Random Glucose 129 MG/DL (74-106) Calcium Level 7.9 MG/DL (8.5-10.1) Total Bilirubin 3.0 MG/DL (0.2-1.0) Aspartate Amino Transf 50 U/L (15-37) (AST/SGOT) Alkaline Phosphatase 266 U/L (45-117) Troponin I LESS THAN 0.02 NG/ML (0.02-0.05) Total Protein 5.5 GM/DL (6.4-8.2) Albumin 1.9 GM/DL (3.4-5.0) Acetaminophen Level 5.1 MCG/ML (10.0-30.0) White Blood Count 12.7 TH/MM3 (4.0-11.0) Platelet Count 11 TH/MM3 (150-450) Mean Platelet Volume 12.8 FL (7.0-11.0) Neutrophils (%) (Auto) 80.0 % (16.0-70.0) Neutrophils # (Auto) 10.1 TH/MM3 (1.8-7.7) Band Neutrophils % 28 % (0-6) Lymphocytes % 6 % (9-44) Neutrophils # (Manual) 11.2 TH/MM3 (1.8-7.7) Toxic Granulation 1+ (NORMAL) Toxic Vacuolation PRESENT (NONE SEEN) Platelet Estimate RARE (NORMAL) Acanthocytes OCC (NORMAL) Prothrombin Time 14.5 SEC (9.8-11.6) Activated Partial 40.1 SEC Thromboplast Time (24.3-30.1) Blood Gas HCO3 11 mmol/L (22-26) Blood Gas Base Excess -13.9 mmol/L (-2-2) Arterial Blood pH 7.36 (7.380-7.420) Arterial Blood Partial 20 mmHg (38-42) Pressure CO2 Blood Gas Hemoglobin 11.5 G/DL (12.0-16.0) Test 09/27/16 09/28/16 09/28/16 09/28/16 22:40 01:29 02:00 04:44 Lactic Acid Level 6.6 mmol/L 7.6 mmol/L (0.4-2.0) (0.4-2.0) Blood Gas HCO3 13 mmol/L 18 mmol/L (22-26) (22-26) Blood Gas Base Excess -14.7 mmol/L -5.7 mmol/L (-2-2) (-2-2) Arterial Blood pH 7.14 (7.380-7.420) Arterial Blood Partial 359 mmHG 157 mmHg Pressure O2 (61-120) (61-120) Arterial Blood Partial 31 mmHg (38-42) Pressure CO2 Blood Gas Hemoglobin 11.5 G/DL (12.0-16.0) Test 09/28/16 09/28/16 09/28/16 09/28/16 05:04 08:12 10:56 11:40 Lactic Acid Level 6.4 mmol/L 3.8 mmol/L (0.4-2.0) (0.4-2.0) Prothrombin Time 14.4 SEC (9.8-11.6) Activated Partial 35.5 SEC Thromboplast Time (24.3-30.1) Fibrinogen 171 mg/dL (181-393) Chloride Level 97 MEQ/L (98-107) Blood Urea Nitrogen 77 MG/DL (7-18) Creatinine 3.24 MG/DL (0.50-1.00) Estimat Glomerular Filtration 17 ML/MIN (>89) Rate Random Glucose 129 MG/DL (74-106) Calcium Level 7.0 MG/DL (8.5-10.1) Protein Corrected Calcium 8.0 MG/DL (8.5-10.1) Lactate Dehydrogenase 608 U/L (84-246) Total Creatine Kinase 205 U/L (26-192) Creatine Kinase MB 10.4 NG/ML (0.5-3.6) Creatine Kinase MB % 5.1 % (0.0-4.0) Troponin I LESS THAN 0.02 NG/ML (0.02-0.05) C-Reactive Protein 21.00 MG/DL (0.00-0.30) Total Protein 5.2 GM/DL (6.4-8.2) Procalcitonin 28.29 ng/mL (0.00-0.50) White Blood Count 20.3 TH/MM3 (4.0-11.0) Platelet Count 17 TH/MM3 (150-450) Haptoglobin 22 MG/DL (30-200) Test 09/28/16 09/29/16 09/29/16 09/29/16 17:10 02:30 04:35 13:00 White Blood Count 21.4 TH/MM3 25.2 TH/MM3 (4.0-11.0) (4.0-11.0) Hemoglobin 11.3 GM/DL 8.3 GM/DL (11.6-15.3) (11.6-15.3) Hematocrit 34.8 % 27.1 % (35.0-46.0) (35.0-46.0) Platelet Count 32 TH/MM3 13 TH/MM3 (150-450) (150-450) Mean Platelet Volume 11.4 FL (7.0-11.0) Blood Urea Nitrogen 87 MG/DL (7-18) 95 MG/DL (7-18) Creatinine 3.46 MG/DL 4.66 MG/DL (0.50-1.00) (0.50-1.00) Estimat Glomerular Filtration 16 ML/MIN (>89) 11 ML/MIN (>89) Rate Random Glucose 114 MG/DL (74-106) Lactic Acid Level 3.6 mmol/L 15.2 mmol/L (0.4-2.0) (0.4-2.0) Calcium Level 6.2 MG/DL 5.3 MG/DL (8.5-10.1) (8.5-10.1) Protein Corrected Calcium 7.3 MG/DL 7.0 MG/DL (8.5-10.1) (8.5-10.1) Phosphorus Level 5.2 MG/DL 10.9 MG/DL (2.5-4.9) (2.5-4.9) Lactate Dehydrogenase 982 U/L (84-246) Total Protein 4.8 GM/DL 3.3 GM/DL (6.4-8.2) (6.4-8.2) Complement C3 49 MG/DL (90-180) Complement C4 6 MG/DL (10-40) Blood Gas HCO3 8 mmol/L (22-26) Blood Gas Base Excess -21.3 mmol/L (-2-2) Blood Gas Oxygen Saturation 76 % (90-100) Arterial Blood pH 6.95 (7.380-7.420) Arterial Blood Oxygen Content 10.9 Vol % (12.0-20.0) Blood Gas Hemoglobin 10.1 G/DL (12.0-16.0) Red Blood Count 3.00 MIL/MM3 (4.00-5.30) Mean Corpuscular Hemoglobin 30.7 % Concent (32.0-36.0) Neutrophils (%) (Auto) 73.0 % (16.0-70.0) Monocytes (%) (Auto) 10.8 % (0.0-8.0) Neutrophils # (Auto) 18.3 TH/MM3 (1.8-7.7) Monocytes # (Auto) 2.7 TH/MM3 (0-0.9) Band Neutrophils % 12 % (0-6) Neutrophils # (Manual) 20.2 TH/MM3 (1.8-7.7) Myelocytes 3 % (0-0) Nucleated Red Blood Cells 2 /100 WBC (0-0) Toxic Granulation 1+ (NORMAL) Toxic Vacuolation PRESENT (NONE SEEN) Platelet Estimate LOW (NORMAL) Ovalocytes 1+ (NORMAL) Potassium Level 6.6 MEQ/L 7.4 MEQ/L (3.5-5.1) (3.5-5.1) Carbon Dioxide Level 14.5 MEQ/L (21.0-32.0) Anion Gap 27 MEQ/L (5-15) Magnesium Level 2.9 MG/DL (1.5-2.5) Total Bilirubin 2.8 MG/DL (0.2-1.0) Aspartate Amino Transf 5078 U/L (AST/SGOT) (15-37) Alanine Aminotransferase 899 U/L (10-53) (ALT/SGPT) Alkaline Phosphatase 252 U/L (45-117) Albumin 1.1 GM/DL (3.4-5.0) Imaging Last Impressions Chest X-Ray 09/28/16 0101 Signed Impressions: Service Date/Time: Wednesday, September 28, 2016 01:18 - CONCLUSION: Endotracheal tube and nasogastric are in good position Erick Wright MD Head CT 09/27/162356 Signed Impressions: Service Date/Time: Wednesday, September 28, 2016 02:26 - CONCLUSION: Normal examination. Erick Wright MD Abdomen/Pelvis CT 09/27/162356 Signed Impressions: Service Date/Time: Wednesday, September 28, 2016 02:30 - CONCLUSION: Small areas of lower lobe consolidation the lungs possible atelectasis. Solid organs of the abdomen are unremarkable without IV contrast. Some free fluid in the pelvis. Erick Wright MD Hospital Course Neuro/Psych: Toxic metabolic encephalopathy secondary to infectious etiology Positive toxicology for amphetamines/opiates History of polysubstance abuse Patient is currently off all sedation Goal of RASS -[address] on admission revealed no acute intracranial findings Toxicology was positive for amphetamines and opiates. 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 Currently on Levophed and Best-Synephrine and vasopressin. Goal to keep MAP greater than 65 Bedside echocardiogram reveals large tricuspid valvular vegetation. 1.0 x [address] surgery but not candidate for valve replacement due to underlying illness/active drug use Obtain records from [facility] from previous surgery Troponin negative. Trending lactates. Currently 15 Resp: Acute respiratory failure History of tobaccoism [facility] / Ventilator bundle Bronchodilator therapy every 4 hours and as needed Chest x-ray revealed possible left pleural effusion versus atelectasis. No spontaneous breathing trials until more stable. GI: History of hepatitis C Elevated total bilirubin Elevated AST Hypoalbuminemia Patient is written for Nepro goal 40 cc an hour Protonix for GI prophylaxis Colace/Senokot for bowel regimen H with ongoing shock with : Vu place for accurate I's and O's in a critically ill patient Endo: Sliding scale insulin Accu-Cheks every 6 hours to maintain euglycemia/low regimen TSH within normal limits Renal: Acute kidney injury Follow-up urine electrolytes/eosinophils CT abdomen/pelvis reveal no hydronephrosis Currently on bicarbonate drip. We'll consult nephrology. No acute indication for hemodialysis at this time. Heme: Thrombocytopenia Leukocytosis History of cervical cancer Recheck coag/fibrinogen this a.m. Transfuse 2 pack platelets overnight Hematology consulted. Likely secondary likely infection/consumption. ID: Severe sepsis Currently on vancomycin 1 dose, aztreonam 1 g every 8 and Flagyl. -Currently on Rocephin, gentamicin and rifampin in #2 per ID Pertinent cultures 09/28 - blood cultures 2 MRSA 09/27 - blood cultures 2 -Aureus 09/27 - urine - pending Noted penicillin allergy. Infectious disease consulted with recommendations of MSK: PT evaluate and treat/range of motion FEN: Hyponatremia Hyperphosphatemia Hyper-magnesium Replace electrolytes as clinically indicated Recheck BMP this am with magnesium phosphorus Access - Utilize right femoral TLC. Remove once platelets adequate corrected. Prophylaxis - GI - Protonix - DVT - holding pharmacological prophylaxis in light of severe thrombocytopenia Critical Care: The total critical care time was 35 minutes. Time to perform other separately billable procedures was not included in the critical care time. Discussed with mother Nazia. Family bedside. Wishes DNR status. Palliative care is involved. Awaiting for father to be released from prison to visit daughter prior to withdrawal of care. Erwin Chandler MD Sep 29, 2016 17:04
[2016-09-29] MEDS ORDERED: HYDROmorphone HCL PF 2 MG/ML VIAL IV SCH (20:00)
[2016-09-29] MEDS ORDERED: LORazepam 2 MG/ML VIAL IV SCH (20:00)
[2016-10-01 17:53] LABS: MYELOPEROXIDASE LESS THAN 1.0 AI (<1.0); PROTEINASE-3 LESS THAN 1.0 AI (<1.0)
== END 2016-09-29 16:43 | disposition expired | DRG 871 ==
LOC: NEPE 22:02 → NEDA 09-28 00:06 → HIMN 09-28 02:40
PROVIDERS: ADMIT Internal Medicine Critical Care Medicine; ATTEND Internal Medicine Critical Care Medicine
PROC: 0BH17EZ Insertion of Endotracheal Airway into Trachea, Via Natural or Artificial Opening (ICD-10-PCS; principal; 2016-09-27)
PROC: 5A1935Z Respiratory Ventilation, Less than 24 Consecutive Hours (ICD-10-PCS; 2016-09-27)
PROC: 06HM33Z Insertion of Infusion Device into Right Femoral Vein, Percutaneous Approach (ICD-10-PCS; 2016-09-27)
PROC: 30243R1 Transfusion of Nonautologous Platelets into Central Vein, Percutaneous Approach (ICD-10-PCS; 2016-09-28)
DX: A41.02 Sepsis due to Methicillin resistant Staphylococcus aureus (principal); J96.00 Acute respiratory failure, unspecified whether with hypoxia or hypercapnia; D65 Disseminated intravascular coagulation [defibrination syndrome]; G92 Toxic encephalopathy; N17.9 Acute kidney failure, unspecified; E87.2 Acidosis; D69.6 Thrombocytopenia, unspecified; I38 Endocarditis, valve unspecified; D68.9 Coagulation defect, unspecified; E87.1 Hypo-osmolality and hyponatremia; R65.20 Severe sepsis without septic shock; K72.90 Hepatic failure, unspecified without coma; E87.5 Hyperkalemia; F15.10 Other stimulant abuse, uncomplicated; Z95.2 Presence of prosthetic heart valve; I07.9 Rheumatic tricuspid valve disease, unspecified; B19.20 Unspecified viral hepatitis C without hepatic coma; E88.09 Other disorders of plasma-protein metabolism, not elsewhere classified; E83.39 Other disorders of phosphorus metabolism; E83.41 Hypermagnesemia; Z66 Do not resuscitate; F43.29 Adjustment disorder with other symptoms; F17.210 Nicotine dependence, cigarettes, uncomplicated; Z88.0 Allergy status to penicillin; Z85.41 Personal history of malignant neoplasm of cervix uteri
CPT/HCPCS: 31500; 36430; 36556; 36600; 51702; 70450; 71010; 74176; 80048; 80053; 80202; 80307; 81001; 82140; 82550; 82552; 82570; 82805; 82948; 83010; 83605; 83615; 83735; 84100; 84132; 84145; 84155; 84300; 84443; 84484; 85007; 85027; 85060; 85384; 85610; 85730; 86021; 86038; 86140; 86160; 86403; 86850; 86900; 86901; 87040; 87070; 87086; 87147; 87186; 87205; 87449; 87641; 87804; 93005; 93306; 94002; 94640; 94664; 96361; 96365; 96375; C9113; J0171; J0610; J0696; J1170; J1580; J1720; J1815; J1956; J2060; J2250; J2370; J3010; J3370; J7030; J7050; J7060; J7070; P9035; P9037; P9047